=== PATIENT | female | born 1950 | race Caucasian/White ===

== ENCOUNTER → 2017-04-09 | Outpatient (CLI) | payer BC ==
--- NOTE | 2017-04-10 10:49 | MM ---
Reason for exam: screening (asymptomatic). Last mammogram was performed 1 year and 2 months ago. History: Patient is postmenopausal and had first child at age 41. Family history of breast cancer in maternal aunt. Benign stereotactic core biopsy of the right breast, April 17, 2004. Benign stereotactic core biopsy of the right breast, January 03, 2000. Physical Findings: A clinical breast exam by your physician is recommended on an annual basis and results should be correlated with mammographic findings. MG 3D Screening Mammo W/Cad Bilateral CC and MLO view(s) were taken. Prior study comparison: January 23, 2016, bilateral MG 3d screening mammo w/cad. December 15, 2014, bilateral MG screening mammo w CAD. There are scattered fibroglandular densities. Stable benign calcifications. There is no discrete abnormality. No significant changes when compared with prior studies. ASSESSMENT: Benign, BI-RAD 2 RECOMMENDATION: Routine screening mammogram of both breasts in 1 year.
== END | disposition home or self-care (01) ==
LOC: RADMAMWWP 13:43
PROVIDERS: ATTEND Family Medicine
DX: Z12.31 Encounter for screening mammogram for malignant neoplasm of breast (principal)
CPT/HCPCS: 77063; G0202

== ENCOUNTER → 2017-12-02 | Outpatient (CLI) | payer MEDICARE ==
[2017-12-02 14:59] LABS: Potassium 4.5 mmol/L (3.5-5.1)
== END | disposition home or self-care (01) ==
LOC: LABWHC1 14:20
PROVIDERS: ATTEND Internal Medicine Interventional Cardiology
DX: I10 Essential (primary) hypertension (principal)
CPT/HCPCS: 36415; 80051; 82565; 84520

== ENCOUNTER → 2018-10-07 | Outpatient (CLI) | payer MEDICARE ==
--- NOTE | 2018-10-08 10:18 | MM ---
Reason for exam: screening (asymptomatic). Last mammogram was performed 1 year and 6 months ago. History: Patient is postmenopausal and had first child at age 41. Family history of breast cancer in maternal aunt. Benign stereotactic core biopsy of the right breast, April 17, 2004. Benign stereotactic core biopsy of the right breast, January 03, 2000. Physical Findings: A clinical breast exam by your physician is recommended on an annual basis and results should be correlated with mammographic findings. MG 3D Screening Mammo W/Cad Bilateral CC and MLO view(s) were taken. Prior study comparison: April 09, 2017, bilateral MG 3d screening mammo w/cad. January 23, 2016, bilateral MG 3d screening mammo w/cad. The breast tissue is heterogeneously dense. This may lower the sensitivity of mammography. There are benign appearing round linear calcifications bilaterally. Previous mammotome biopsy in the right breast. There is no discrete abnormality. ASSESSMENT: Benign, BI-RAD 2 RECOMMENDATION: Routine screening mammogram of both breasts in 1 year.
== END | disposition home or self-care (01) ==
LOC: RADMAMWWP 10:51
PROVIDERS: ATTEND Obstetrics & Gynecology
DX: Z12.31 Encounter for screening mammogram for malignant neoplasm of breast (principal)
CPT/HCPCS: 77063; 77067

== ENCOUNTER → 2018-11-20 | Outpatient (CLI) | payer MEDICARE ==
--- NOTE | 2018-11-22 09:44 | US ---
LOWER EXTREMITY VENOUS INSUFFICIENCY SIDE PERFORMED: Bilateral 1) Color flow is present and patency is documented in the following vessels. No DVT or SVT is noted . EIV Common Femoral Vein Deep Femoral Vein Femoral Vein Popliteal Vein Proximal Calf Veins Greater Saph Vein Upper Small Saph Vein 2) There is venous reflux noted at the following venous levels: Right EIV, mild amount in CFV Left EIV, mild amount in CFV 3) Incompetent perforators are noted at these levels: Grayscale, color Doppler, spectral Doppler imaging performed IMPRESSION: Venous reflux bilaterally as described
== END | disposition home or self-care (01) ==
LOC: RADUSMAIN 14:07
PROVIDERS: ATTEND Nuclear Medicine Nuclear Cardiology
DX: I87.2 Venous insufficiency (chronic) (peripheral) (principal)
CPT/HCPCS: 93970

== ENCOUNTER → 2018-12-15 | Outpatient (CLI) | payer MEDICARE ==
--- NOTE | 2018-12-15 16:46 | US ---
EXAMINATION TYPE: US venous doppler duplex LE DATE OF EXAM: 12/15/2018 4:30 PM COMPARISON: NONE CLINICAL HISTORY: varicose veins of bilat lower extremities I83.813. SIDE PERFORMED: Bilateral TECHNIQUE: The lower extremity deep venous system is examined utilizing real time linear array sonog mike with graded compression, doppler sonography and color-flow sonography. VESSELS IMAGED: External Iliac Vein (EIV) Common Femoral Vein Deep Femoral Vein Greater Saphenous Vein * Femoral Vein Popliteal Vein Small Saphenous Vein * Proximal Calf Veins (* superficial vessels) Right Leg: Negative for DVT Left Leg: Negative for DVT IMPRESSION: No evidence of deep venous thrombosis in both legs.
== END | disposition home or self-care (01) ==
LOC: RADUSWWP 15:53
PROVIDERS: ATTEND Nuclear Medicine Nuclear Cardiology
DX: I83.813 Varicose veins of bilateral lower extremities with pain (principal)
CPT/HCPCS: 93970

== ENCOUNTER → 2020-02-10 | Outpatient (CLI) | payer MEDICARE ==
--- NOTE | 2020-02-11 11:25 | MM ---
Reason for exam: screening (asymptomatic). Last mammogram was performed 1 year and 4 months ago. History: Patient is postmenopausal and had first child at age 41. Family history of breast cancer in maternal aunt. Benign stereotactic core biopsy of the right breast, April 17, 2004. Benign stereotactic core biopsy of the right breast, January 03, 2000. Physical Findings: A clinical breast exam by your physician is recommended on an annual basis and results should be correlated with mammographic findings. MG 3D Screening Mammo W/Cad Bilateral CC and MLO view(s) were taken. Prior study comparison: October 07, 2018, bilateral MG 3d screening mammo w/cad. April 09, 2017, bilateral MG 3d screening mammo w/cad. There are scattered fibroglandular densities. No significant changes when compared with prior studies. ASSESSMENT: Benign, BI-RAD 2 RECOMMENDATION: Routine screening mammogram of both breasts in 1 year.
== END | disposition home or self-care (01) ==
LOC: RADMAMWWP 08:45
PROVIDERS: ATTEND Family Medicine
DX: Z12.31 Encounter for screening mammogram for malignant neoplasm of breast (principal)
CPT/HCPCS: 77063; 77067

== ENCOUNTER → 2021-05-17 | Outpatient (CLI) | payer MEDICARE ==
[2021-05-17 23:31] LABS: HCT 39.3 % (37.2-46.3); HGB 12.6 g/dL (12.0-15.0); MCH 32.6 pg (27.0-32.0); MCHC 32.1 g/dL (32.0-37.0); MCV 101.8 fL (80.0-97.0); Mean Platelet Volume 12.2 fL (9.5-12.2); Platelet Count 130 X 10*3/uL (140-440); RBC 3.86 X 10*6/uL (4.10-5.20); RDW 15.5 % (11.5-14.5); WBC 5.04 X 10*3/uL (4.50-10.00)
[2021-05-18 05:13] LABS: T4, Free (Free Thyroxine) 0.88 ng/dL (0.800-1.800)
== END | disposition home or self-care (01) ==
LOC: LABWHC1 15:13
PROVIDERS: ATTEND Physician Assistant
DX: G62.9 Polyneuropathy, unspecified (principal)
CPT/HCPCS: 36415; 82306; 82607; 84207; 84439; 84443; 84481; 85027; 86334

== ENCOUNTER → 2021-05-17 | Outpatient (CLI) | payer MEDICARE ==
--- NOTE | 2021-05-19 11:45 | MM ---
Reason for exam: screening (asymptomatic). Last mammogram was performed 1 year and 3 months ago. History: Patient is postmenopausal and had first child at age 41. Family history of breast cancer in maternal aunt. Benign stereotactic core biopsy of the right breast, April 17, 2004. Benign stereotactic core biopsy of the right breast, January 03, 2000. Physical Findings: A clinical breast exam by your physician is recommended on an annual basis and results should be correlated with mammographic findings. MG 3D Screening Mammo W/Cad Bilateral CC and MLO view(s) were taken. XCCL view(s) were taken of the right breast. Prior study comparison: February 10, 2020, bilateral MG 3d screening mammo w/cad. October 07, 2018, bilateral MG 3d screening mammo w/cad. April 09, 2017, bilateral MG 3d screening mammo w/cad. There are scattered fibroglandular densities. Previous mammotome biopsy in the right breast. There is chronic nodularity in the right breast. Stable mole right breast. No significant changes when compared with prior studies. ASSESSMENT: Benign, BI-RAD 2 RECOMMENDATION: Routine screening mammogram of both breasts in 1 year.
== END | disposition home or self-care (01) ==
LOC: RADMAMWWP 15:17
PROVIDERS: ATTEND Family Medicine
DX: Z12.31 Encounter for screening mammogram for malignant neoplasm of breast (principal)
CPT/HCPCS: 77063; 77067

== ENCOUNTER → 2022-06-04 | Outpatient (CLI) | payer MEDICARE ==
--- NOTE | 2022-06-05 08:32 | MM ---
Reason for Exam: Screening (asymptomatic). Last mammogram was performed 1 year(s) and 1 month(s) ago. Patient History: Menarche at age 14. First Full-Term at age 41. Late child-bearing (after 30). Postmenopausal. 04/17/2004, Benign Stereotactic Core Biopsy on the right side. 01/03/2000, Benign Stereotactic Core Biopsy on the right side. Maternal aunt had breast cancer, age 65. Risk Values: Deonna 5 year model risk: 3.6%. NCI Lifetime model risk: 10.7%. Prior Study Comparison: 10/07/2018 Bilateral Screening Mammogram, [facility]. 02/10/2020 Bilateral Screening Mammogram, [facility]. 05/17/2021 Bilateral Screening Mammogram, [facility]. Tissue Density: The breast tissue is almost entirely fat. Findings: Analyzed By CAD. There is no suspicious group of microcalcifications or new suspicious mass in either breast. Overall Assessment: Negative, BI-RAD 1 Management: Screening Mammogram of both breasts in 1 year. A clinical breast exam by your physician is recommended on an annual basis and results should be correlated with mammographic findings. [facility] will attempt to contact patient to return for supplemental views and ultrasound if indicated. Electronically signed and approved by: Inocencio Ruvalcaba DO
== END | disposition home or self-care (01) ==
LOC: RADMAMWWP 10:51
PROVIDERS: ATTEND Family Medicine
DX: Z12.31 Encounter for screening mammogram for malignant neoplasm of breast (principal); Z78.0 Asymptomatic menopausal state; Z80.3 Family history of malignant neoplasm of breast
CPT/HCPCS: 77063; 77067

== ENCOUNTER 2022-11-02 19:56 | Inpatient (IN) | payer MEDICARE ==
[2022-11-02 20:42] LABS: Anisocytosis Slight; Basophils % (A) 0 %; Eosinophils % (A) 1 %; HCT 40.4 % (34.0-46.0); HGB 13.4 gm/dL (11.4-16.0); Lymphocytes # (A) 0.2 k/uL (1.0-4.8); Lymphocytes % (A) 9 %; MCH 28.6 pg (25.0-35.0); MCHC 33.2 g/dL (31.0-37.0); MCV 86.1 fL (80.0-100.0); Mean Platelet Volume 8.7; Monocytes # (A) 0.1 k/uL (0-1.0); Monocytes % (A) 3 %; Neutrophils # (A) 2.2 k/uL (1.3-7.7); Neutrophils % (A) 87 %; Platelet Count 151 k/uL (150-450); Poikilocytosis Slight; RBC 4.69 m/uL (3.80-5.40); RDW 16.3 % (11.5-15.5); WBC 2.6 k/uL (3.8-10.6)
--- NOTE | 2022-11-02 20:48 | XR ---
EXAMINATION TYPE: XR chest 2V DATE OF EXAM: 11/02/2022 COMPARISON: 10/07/2014 TECHNIQUE: PA and lateral views submitted. HISTORY: Shortness of breath FINDINGS: The heart is enlarged. There is a diffuse interstitial pattern. No sizable pneumothorax or pleural ef fusion. Hypertrophic and degenerative change of the spine. Arthropathy of the shoulders. Lap band pre vious surgery suggested. IMPRESSION: 1. Diffuse interstitial pattern. Lack of pleural fluid suggest infectious etiology should be favored over CHF correlate clinically.
[2022-11-02 20:51] LABS: ALT 24 U/L (4-34); AST 45 U/L (14-36); African American GFR (CKD) >90 (>60 ml/min/1.73 sqM); Albumin 3.7 g/dL (3.5-5.0); Alkaline Phosphatase 160 U/L (38-126); Anion Gap 11 mmol/L; Blood Urea Nitrogen 14 mg/dL (7-17); Calcium 8.8 mg/dL (8.4-10.2); Carbon Dioxide 26 mmol/L (22-30); Chloride 101 mmol/L (98-107); Glucose 129 mg/dL (74-99); Non-African American GFR(CKD) 88 (>60 ml/min/1.73 sqM); Sodium 138 mmol/L (137-145); Total Bilirubin 0.8 mg/dL (0.2-1.3); Total Protein 6.6 g/dL (6.3-8.2)
[2022-11-02 20:52] LABS: Partial Thromboplastin Time 25.1 sec (22.0-30.0); Prothrombin Time 10.6 sec (9.0-12.0)
[2022-11-02] MEDS ORDERED: ALBUTEROL NEBULIZED 2.5 MG/3 ML INHALATION STA (20:52)
[2022-11-02] MEDS ORDERED: ALBUTEROL HFA INHALER INHALATION STA (20:54)
[2022-11-02 20:56] LABS: Potassium 2.7 mmol/L (3.5-5.1)
[2022-11-02] MEDS ORDERED: POTASSIUM CHLORIDE ER 20 MEQ TAB.ER PO STA (20:58)
--- NOTE | 2022-11-02 21:32 | ED ---
SOB HPI - General Chief Complaint: Shortness of Breath Stated Complaint: covid +/sob Time Seen by Provider: 11/02/22 20:05 Source: patient Mode of arrival: ambulatory Limitations: no limitations - History of Present Illness Initial Comments: Patient is a 71-year-old female who presents to the emergency department for shortness of breath. Patient states she had a positive at home COVID-19 testing earlier this week. She started to feel short of breath for the past couple days. Patient feels short of breath at rest. She denies chest pain. She does not have history of COPD or asthma. She does have history of atrial fibrillation currently on Xarelto. She denies a fever, chills, abdominal pain, nausea, vomiting. She does have a dry cough and nasal congestion. No lower extremity pain or swelling. - Related Data Home Medications Medication Instructions Recorded Confirmed Atorvastatin [Lipitor] 10 mg PO AC-SUPPER 10/13/14 12/23/14 Cholecalciferol [Vitamin D3] 400 unit PO PC-SUPPER 10/13/14 12/23/14 HYDROcodone/APAP 7.5-325MG [[place] 1 each PO TID PRN 10/13/14 12/23/14 7.5-325] Ibuprofen [Motrin] 800 mg PO DAILY PRN 10/13/14 12/23/14 Lisinopril-Hctz 10-12.5 mg 1 each PO DAILY 10/13/14 12/23/14 [Zestoretic 10-12.5] Metoprolol Tartrate 25 mg PO BID 10/13/14 12/23/14 Multivitamins, Thera [Theragran] 1 each PO AC-SUPPER 10/13/14 12/23/14 Rivaroxaban [Xarelto] 20 mg PO PC-SUPPER 10/13/14 12/23/14 Sertraline [Zoloft] 150 mg PO PC-SUPPER 10/13/14 12/23/14 Amiodarone [Cordarone] 200 mg PO BID 12/22/14 12/23/14 Allergies Allergy/AdvReac Type Severity Reaction Status Date / Time No Known Allergies Allergy Verified 11/02/22 20:02 Review of Systems ROS Statement: Those systems with pertinent positive or pertinent negative responses have been documented in the HPI. ROS Other: All systems not noted in ROS Statement are negative. Past Medical History Past Medical History: Atrial Fibrillation, Hyperlipidemia, Hypertension, Osteoarthritis (OA) Additional Past Medical History / Comment(s): LILIANA KNEES VERY PAINFUL. MILD EDEMA LEGS History of Any Multi-Drug Resistant Organisms: None Reported Past Surgical History: Bariatric Surgery, Breast Surgery, Section, Heart Catheterization Additional Past Surgical History / Comment(s): 2 BREAST BX; D&C'S; LAP BAND 2005. Past Anesthesia/Blood Transfusion Reactions: No Reported Reaction Past Psychological History: Anxiety Smoking Status: Never smoker Past Alcohol Use History: Occasional Past Drug Use History: None Reported - Past Family History Mother Family Medical History: Deep Vein Thrombosis (DVT) Father Family Medical History: CVA/TIA General Exam Limitations: no limitations General appearance: alert, in no apparent distress Respiratory exam: Present: normal lung sounds bilaterally, decreased breath sounds (bronchospasm ). Absent: respiratory distress, wheezes, rales, rhonchi, stridor Cardiovascular Exam: Present: regular rate, normal rhythm, normal heart sounds. Absent: systolic murmur, diastolic murmur, rubs, gallop, clicks GI/Abdominal exam: Present: soft, normal bowel sounds. Absent: distended, tenderness, guarding, rebound, rigid Neurological exam: Present: alert, oriented X3, CN II-XII intact Psychiatric exam: Present: normal affect, normal mood Skin exam: Present: warm, dry, intact, normal color. Absent: rash Course Vital Signs 11/02/22 11/02/22 19:57 20:41 Temperature 98.2 F Pulse Rate 102 H Respiratory 22 20 Rate Blood Pressure 178/92 O2 Sat by Pulse 93 L Oximetry Medical Decision Making - Medical Decision Making EKG taken at 20:16, interpreted by me Atrial fibrillation with RVR Ventricular rate 107, QRS duration 86, QTC 418 Was pt. sent in by a medical professional or institution (, PA, CHIEF OF PRODUCTION, urgent care, hospital, or chcf...) When possible be specific @ -[No] Did you speak to anyone other than the patient for history (EMS, parent, family, police, friend...)? What history was obtained from this source @ -[No] Did you review nursing and triage notes (agree or disagree)? Why? @ -[I reviewed and agree with nursing and triage notes] Were old charts reviewed (outside hosp., previous admission, EMS record, old EKG, old radiological studies, urgent care reports/EKG's, chcf records)? Report findings @ -[No old charts were reviewed] Differential Diagnosis (chest pain, altered mental status, abdominal pain women, abdominal pain men, vaginal bleeding, weakness, fever, dyspnea, syncope, h eadache, dizziness, GI bleed, back pain, seizure, CVA, palpatations, mental health)? @ -Differential Dyspnea: Coronary syndrome, arrhythmia, tamponade, asthma, COPD, pulmonary embolism, pneumonia, pneumothorax, pulmonary effusion, anaphylaxis, diabetic ketoacidosis, flailed chest, pulmonary contusion, diaphragmatic rupture, anemia, neuromuscular, this is not meant to be an all-inclusive list. EKG interpreted by me (3pts min.). @ -[As above] X-rays interpreted by me (1pt min.). @ -Yes, chest x-ray shows a diffuse interstitial pattern CT interpreted by me (1pt min.). @ -[None done] U/S interpreted by me (1pt. min.). @ -[None done] What testing was considered but not performed or refused? (CT, X-rays, U/S, labs)? Why? @ -[None] What meds were considered but not given or refused? Why? @ -[None] Did you discuss the management of the patient with other professionals (professionals i.e. , PA, CHIEF OF PRODUCTION, lab, RT, psych nurse, sexual assault social worker, studio engineer, teacher, systems support officer, shelter case manager)? Give summary @ -[No] Was smoking cessation discussed for >3mins.? @ -[No] Was critical care preformed (if so, how long)? @ -[No] Were there social determinants of health that impacted care today? How? (Homelessness, low income, unemployed, alcoholism, drug addiction, transportation, low edu. Level, literacy, decrease access to med. care, chcf, rehab)? @ -[No] Was there de-escalation of care discussed even if they declined (Discuss DNR or withdrawal of care, Hospice)? DNR status @ -[No] What co-morbidities impacted this encounter? (DM, HTN, Smoking, COPD, CAD, Cancer, CVA, ARF, Chemo, Hep., AIDS, mental health diagnosis, sleep apnea, morbid obesity)? @ -[None] Was patient admitted / discharged? Hospital course, mention meds given and route, prescriptions, significant lab abnormalities, going to OR and other pertinent info. @ -Patient presenting with shortness of breath after recent COVID-19 diagnosis. Patient appears mildly tachypneic she is hypoxic at 90% room air. Afebrile. Lung sounds are decreased with bronchospasm.EKG shows atrial fibrillation with ventricular rate at 107. Patient does not have chest pain. Laboratory studies obtained. COVID-19 is detected. Potassium is low at 2.7. Troponin and BNP are within normal limits. Chest x-ray obtained showing diffuse interstitial pattern. Patient observed closely in the emergency department. She remained stable on 2 L nasal cannula supplemental oxygen. Pulse remained in the 100s- 110s. Patient will be admitted for observation due to COVID-19 with hypoxemia. Case discussed with Stoney Fung who accepts admission. Pulm on consult. Patient admitted in stable condition Undiagnosed new problem with uncertain prognosis? @ -[No] Drug Therapy requiring intensive monitoring for toxicity (Heparin, Nitro, Insulin, Cardizem)? @ -[No] Were any procedures done? @ -[No] Diagnosis/symptom? @ -covid 19, hypoxemia Acute, or Chronic, or Acute on Chronic? @ -acute Uncomplicated (without systemic symptoms) or Complicated (systemic symptoms)? @ -uncomplicated Side effects of treatment? @ -[No] Exacerbation, Progression, or Severe Exacerbation? @ -[No] Poses a threat to life or bodily function? How? (Chest pain, USA, ME, pneumonia, PE, COPD, DKA, ARF, appy, cholecystitis, CVA, Diverticulitis, Homicidal, Suicidal, threat to staff... and all critical care pts) @ Dr. Hays is my attending. - Lab Data Result diagrams: 11/02/22 20:05 11/02/22 20:05 Lab Results 11/02/22 11/02/22 11/02/22 Range/Units 20:05 20:05 20:05 WBC 2.6 L (3.8-10.6) k/uL RBC 4.69 (3.80-5.40) m/uL Hgb 13.4 (11.4-16.0) gm/dL Hct 40.4 (34.0-46.0) % MCV 86.1 (80.0-100.0) fL MCH 28.6 (25.0-35.0) pg MCHC 33.2 (31.0-37.0) g/dL RDW 16.3 H (11.5-15.5) % Plt Count 151 (150-450) k/uL MPV 8.7 Neutrophils % 87 % Lymphocytes % 9 % Monocytes % 3 % Eosinophils % 1 % Basophils % 0 % Neutrophils # 2.2 (1.3-7.7) k/uL Lymphocytes # 0.2 L (1.0-4.8) k/uL Monocytes # 0.1 (0-1.0) k/uL Eosinophils # 0.0 (0-0.7) k/uL Basophils # 0.0 (0-0.2) k/uL Poikilocytosis Slight Anisocytosis Slight PT 10.6 (9.0-12.0) sec INR 1.0 (<1.2) APTT 25.1 (22.0-30.0) sec Sodium 138 (137-145) mmol/L Potassium 2.7 L* (3.5-5.1) mmol/L Chloride 101 (98-107) mmol/L Carbon Dioxide 26 (22-30) mmol/L Anion Gap 11 mmol/L BUN 14 (7-17) mg/dL Creatinine 0.71 (0.52-1.04) mg/dL Est GFR (CKD-EPI)AfAm >90 (>60 ml/min/1.73 sqM) Est GFR (CKD-EPI)NonAf 88 (>60 ml/min/1.73 sqM) Glucose 129 H (74-99) mg/dL Plasma Lactic Acid Son (0.7-2.0) mmol/L Calcium 8.8 (8.4-10.2) mg/dL Total Bilirubin 0.8 (0.2-1.3) mg/dL AST 45 H (14-36) U/L ALT 24 (4-34) U/L Alkaline Phosphatase 160 H (38-126) U/L Troponin I (0.000-0.034) ng/mL NT-Pro-B Natriuret Pep pg/mL Total Protein 6.6 (6.3-8.2) g/dL Albumin 3.7 (3.5-5.0) g/dL Influenza Type A (PCR) (Not Detectd) Influenza Type B (PCR) (Not Detectd) RSV (PCR) (Not Detectd) SARS-CoV-2 (PCR) (Not Detectd) 11/02/22 11/02/22 11/02/22 Range/Units 20:05 20:05 20:07 WBC (3.8-10.6) k/uL RBC (3.80-5.40) m/uL Hgb (11.4-16.0) gm/dL Hct (34.0-46.0) % MCV (80.0-100.0) fL MCH (25.0-35.0) pg MCHC (31.0-37.0) g/dL RDW (11.5-15.5) % Plt Count (150-450) k/uL MPV Neutrophils % % Lymphocytes % % Monocytes % % Eosinophils % % Basophils % % Neutrophils # (1.3-7.7) k/uL Lymphocytes # (1.0-4.8) k/uL Monocytes # (0-1.0) k/uL Eosinophils # (0-0.7) k/uL Basophils # (0-0.2) k/uL Poikilocytosis Anisocytosis PT (9.0-12.0) sec INR (<1.2) APTT (22.0-30.0) sec Sodium (137-145) mmol/L Potassium (3.5-5.1) mmol/L Chloride (98-107) mmol/L Carbon Dioxide (22-30) mmol/L Anion Gap mmol/L BUN (7-17) mg/dL Creatinine (0.52-1.04) mg/dL Est GFR (CKD-EPI)AfAm (>60 ml/min/1.73 sqM) Est GFR (CKD-EPI)NonAf (>60 ml/min/1.73 sqM) Glucose (74-99) mg/dL Plasma Lactic Acid Son 1.5 (0.7-2.0) mmol/L Calcium (8.4-10.2) mg/dL Total Bilirubin (0.2-1.3) mg/dL AST (14-36) U/L ALT (4-34) U/L Alkaline Phosphatase (38-126) U/L Troponin I 0.019 (0.000-0.034) ng/mL NT-Pro-B Natriuret Pep pg/mL Total Protein (6.3-8.2) g/dL Albumin (3.5-5.0) g/dL Influenza Type A (PCR) Not Detected (Not Detectd) Influenza Type B (PCR) Not Detected (Not Detectd) RSV (PCR) Not Detected (Not Detectd) SARS-CoV-2 (PCR) Detected A (Not Detectd) 11/02/22 Range/Units 20:51 WBC (3.8-10.6) k/uL RBC (3.80-5.40) m/uL Hgb (11.4-16.0) gm/dL Hct (34.0-46.0) % MCV (80.0-100.0) fL MCH (25.0-35.0) pg MCHC (31.0-37.0) g/dL RDW (11.5-15.5) % Plt Count (150-450) k/uL MPV Neutrophils % % Lymphocytes % % Monocytes % % Eosinophils % % Basophils % % Neutrophils # (1.3-7.7) k/uL Lymphocytes # (1.0-4.8) k/uL Monocytes # (0-1.0) k/uL Eosinophils # (0-0.7) k/uL Basophils # (0-0.2) k/uL Poikilocytosis Anisocytosis PT (9.0-12.0) sec INR (<1.2) APTT (22.0-30.0) sec Sodium (137-145) mmol/L Potassium (3.5-5.1) mmol/L Chloride (98-107) mmol/L Carbon Dioxide (22-30) mmol/L Anion Gap mmol/L BUN (7-17) mg/dL Creatinine (0.52-1.04) mg/dL Est GFR (CKD-EPI)AfAm (>60 ml/min/1.73 sqM) Est GFR (CKD-EPI)NonAf (>60 ml/min/1.73 sqM) Glucose (74-99) mg/dL Plasma Lactic Acid Son (0.7-2.0) mmol/L Calcium (8.4-10.2) mg/dL Total Bilirubin (0.2-1.3) mg/dL AST (14-36) U/L ALT (4-34) U/L Alkaline Phosphatase (38-126) U/L Troponin I (0.000-0.034) ng/mL NT-Pro-B Natriuret Pep 521 pg/mL Total Protein (6.3-8.2) g/dL Albumin (3.5-5.0) g/dL Influenza Type A (PCR) (Not Detectd) Influenza Type B (PCR) (Not Detectd) RSV (PCR) (Not Detectd) SARS-CoV-2 (PCR) (Not Detectd) Disposition Clinical Impression: COVID-19, Hypoxemia Disposition: ADMITTED IP TO THIS HOSP Condition: Stable Referrals: Gaurav Hutchinson MD [Primary Care Provider] - 1-2 days
[2022-11-02] MEDS ORDERED: ONDANSETRON 4 MG/2 ML VIAL IVP STA (21:47)
[2022-11-02] MEDS ORDERED: ONDANSETRON 4 MG/2 ML VIAL IVP PRN (21:48)
[2022-11-02] MEDS ORDERED: NALOXONE 0.4 MG/ML 1 ML VIAL IV PRN (21:48)
[2022-11-03] MEDS ORDERED: ACETAMINOPHEN TAB 325 MG TAB PO PRN (00:34)
[2022-11-03] MEDS ORDERED: FUROSEMIDE 20 MG TAB PO PRN (09:19)
[2022-11-03] MEDS ORDERED: POTASSIUM CHLORIDE ER 10 MEQ TAB.ER.PRT PO PRN (09:19)
[2022-11-03] MEDS: CHOLECALCIFEROL 25 MCG (1000 IU) TABLET PO SCH (09:32)
[2022-11-03] MEDS: ASCORBIC ACID 500 MG TAB PO SCH (09:32)
[2022-11-03] MEDS: METOPROLOL TARTRATE 50 MG TAB PO SCH ×2 (09:32→20:05)
[2022-11-03] MEDS: ZINC SULFATE 220 MG CAP PO SCH (09:32)
[2022-11-03] MEDS: lisinopriL 5 MG TAB PO SCH ×2 (09:33→20:05)
[2022-11-03] MEDS: dexAMETHasone 2 MG TAB PO SCH (09:33)
[2022-11-03] MEDS ORDERED: Potassium Replacement Protocol 1 EACH MISC MISCELLANE PRN (10:47)
[2022-11-03] MEDS ORDERED: Magnesium Replacement Protocol 1 EACH MISC MISCELLANE PRN (10:47)
[2022-11-03] MEDS ORDERED: REMDESIVIR 200 MG in SODIUM CHLORIDE 0.9% 250 ML IVPB ONE (11:00)
--- NOTE | 2022-11-03 12:17 | HP ---
HISTORY AND PHYSICAL CHIEF COMPLAINT: Shortness of breath, cough, and cold. HISTORY OF PRESENT ILLNESS: This is a 71-year-old woman with a past medical history of multiple medical problems including atrial fibrillation, was not feeling well for the past several days. Patient had increased shortness with cough, and the patient came to [facility]. Chest x-ray showed bilateral pneumonia. COVID-19 was positive. Patient also had severe hypokalemia. No chest pain or palpitations. No fever. PAST MEDICAL HISTORY: Reviewed include atrial fibrillation, rest of the history and rest of the chart is also reviewed. CURRENT MEDICATIONS: Zestril, the dose and rest of medications noted. ALLERGIES: None. FAMILY HISTORY: History of DVT in the family. SOCIAL HISTORY: No history of smoking. REVIEW OF SYSTEMS: A 14-point review is negative except as mentioned earlier. PHYSICAL EXAMINATION: VITAL SIGNS: Pulse 116, blood pressure ntd, respirations 16. HEENT: Conjunctivae normal. NECK: No jugular venous distention. CARDIOVASCULAR: S1, S2. RESPIRATIONS: Few scattered rhonchi. ABDOMEN: Soft. NERVOUS SYSTEM: No focal deficits. SKIN: No ulcer, rash, bleeding. JOINTS: No active deforming arthropathy. LABORATORY DATA: Reviewed. ASSESSMENT: 1. Acute COVID-19 infection with acute COVID-19 bilateral pneumonia. 2. Hypokalemia. 3. Atrial fibrillation. 4. Hyperlipidemia. 5. Multiple medical issues. RECOMMENDATIONS AND DISCUSSION: This is a 71-year-old woman presented with multiple complex medical issues, we will monitor the patient closely. We will initiate remdesivir, infectious disease and pulmonary consultations, dexamethasone. The patient is on rivaroxaban, will continue to monitor. Prognosis guarded. Repeat lytes and further recommendations to follow. MMODL / IJN: [id number] / [id number]
--- NOTE | 2022-11-03 12:17 | P.CNPUL ---
History of Present Illness Consult date: 11/03/22 Requesting physician: Isaac Reynolds Reason for consult: dyspnea, other (COVID-19) Chief complaint: Shortness of breath, cough, congestion, muscle aches and diarrhea History of present illness: This is a pleasant 71-year-old female patient with a known history of atrial fibrillation anticoagulated with Xarelto, hypertension, hyperlipidemia and anxiety. Lifelong nonsmoker. One week ago she developed increasing shortness of breath body aches diarrhea cough and congestion. She did have a positive home CoVID test. Her symptoms continued to worsen and she came to the emergency room yesterday. Chest x-ray did reveal diffuse interstitial pattern. No sizable pneumothorax or pleural effusions. White count 2.6. Hemoglobin 13.4. Sodium 138. Potassium 2.7. Bicarb 26. BUN 14. Creatinine 0.71. Close 129. AST 45. ALT 24. Influenza screen negative. RSV screen negative. COVID-19 testing positive. She is seen today in consultation on the regular medical floor. Currently sitting up in a chair at the bedside. Awake and alert in no acute distress. She is maintaining O2 saturations at 91% on room air. 97% on 2 L nasal cannula. Afebrile. Somewhat tachycardic. In atrial fibrillation. Afebrile. Review of Systems REVIEW OF SYSTEMS: CONSTITUTIONAL: Positive for generalized weakness. Denies any recent significant weight loss or weight gain. EYES: Denies change in vision. EARS, NOSE, MOUTH, THROAT: Denies headaches, denies sore throat. CARDIOVASCULAR: Denies chest pain, palpitations or syncopal episodes. RESPIRATORY: Positive for shortness of breath, cough, congestion no hemoptysis. GASTROINTESTINAL: Positive for diarrhea. GENITOURINARY: Denies hematuria, denies infections. MUSKULOSKELETAL: Denies pain, denies swelling. INTEGUMENTARY: Denies rash, denies eczema. NEUROLOGICAL: Denies recent memory loss, no recent seizure activity. PSYCHIATRIC: Denies anxiety, denies depression. HEMATOLOGIC/LYMPHATIC: Denies anemia, denies enlarged lymph nodes. Past Medical History Past Medical History: Atrial Fibrillation, Hyperlipidemia, Hypertension, Osteoarthritis (OA) Additional Past Medical History / Comment(s): LILIANA KNEES VERY PAINFUL. MILD EDEMA LEGS History of Any Multi-Drug Resistant Organisms: None Reported Past Surgical History: Bariatric Surgery, Breast Surgery, Section, Heart Catheterization Additional Past Surgical History / Comment(s): 2 BREAST BX; D&C'S; LAP BAND 2005. Past Anesthesia/Blood Transfusion Reactions: No Reported Reaction Past Psychological History: Anxiety Smoking Status: Never smoker Past Alcohol Use History: Occasional Additional Past Alcohol Use History / Comment(s): 2 GLASSES WINE 2-3X PER WK Past Drug Use History: None Reported - Past Family History Mother Family Medical History: Deep Vein Thrombosis (DVT) Father Family Medical History: CVA/TIA Medications and Allergies Home Medications Medication Instructions Recorded Confirmed Type Atorvastatin [Lipitor] 10 mg PO HS 10/13/14 11/02/22 History Rivaroxaban [Xarelto] 20 mg PO HS 10/13/14 11/02/22 History Sertraline [Zoloft] 150 mg PO HS 10/13/14 11/02/22 History Furosemide [Lasix] 20 mg PO DAILY PRN 11/02/22 11/02/22 History Metoprolol Tartrate [Lopressor] 100 mg PO BID 11/02/22 11/02/22 History Nitrofurantoin Macrocrystal 50 mg PO HS 11/02/22 11/02/22 History [Macrodantin] Potassium Chloride ER [K-Dur 10] 10 meq PO DAILY PRN 11/02/22 11/02/22 History lisinopriL [Zestril] 5 mg PO BID 11/02/22 11/02/22 History Allergies Allergy/AdvReac Type Severity Reaction Status Date / Time No Known Allergies Allergy Verified 11/02/22 22:06 Physical Exam Vitals: Vital Signs Temp Pulse Pulse Resp BP BP BP 11/03/22 08:00 116 H 16 11/03/22 07:59 11/03/22 07:50 98.0 F 116 H 16 109/72 11/03/22 02:00 121 H 18 11/03/22 00:15 99.6 F 121 H 18 153/86 11/02/22 23:50 100 20 155/84 11/02/22 22:17 94 18 160/85 11/02/22 20:41 20 11/02/22 19:57 98.2 F 102 H 22 178/92 Pulse Ox 11/03/22 08:00 11/03/22 07:59 97 11/03/22 07:50 91 L 11/03/22 02:00 04/08/23 00:15 97 11/02/22 23:50 94 L 11/02/22 22:17 96 11/02/22 20:41 11/02/22 19:57 93 L Intake and Output 11/02/22 11/03/22 11/03/22 22:59 06:59 14:59 Other: Voiding Method Toilet Toilet # Voids 1 1 # Bowel Movements 1 Weight 104.326 kg 104.326 kg GENERAL EXAM: Alert, pleasant 71-year-old female, up in a chair at the bedside, on 2 L nasal cannula comfortable in no apparent distress. HEAD: Normocephalic. EYES: Normal reaction of pupils, equal size. NOSE: Clear with pink turbinates. THROAT: No erythema or exudates. NECK: No masses, no JVD. CHEST: No chest wall deformity. LUNGS: Equal air entry with bilateral scattered rhonchi, crackles in the bases. CVS: S1 and S2 normal with no audible murmur, regular rhythm. ABDOMEN: No hepatosplenomegaly, normal bowel sounds, no guarding or rigidity. SPINE: No scoliosis or deformity SKIN: No rashes CENTRAL NERVOUS SYSTEM: No focal deficits, tone is normal in all 4 extremities. EXTREMITIES: There is no peripheral edema. No clubbing, no cyanosis. Peripheral pulses are intact. Results - Laboratory Findings CBC and BMP: 11/02/22 20:05 11/02/22 20:05 PT/INR, D-dimer PT 10.6 sec (9.0-12.0) 11/02/22 20:05 INR 1.0 (<1.2) 11/02/22 20:05 Abnormal lab findings: Abnormal Labs 11/02/22 11/02/22 11/02/22 20:05 20:05 20:07 WBC 2.6 L RDW 16.3 H Lymphocytes # 0.2 L Potassium 2.7 L* Glucose 129 H AST 45 H Alkaline Phosphatase 160 H SARS-CoV-2 (PCR) Detected A - Diagnostic Findings Chest x-ray: image reviewed Assessment and Plan Assessment: Acute COVID-19 infection with diarrhea and muscle aches with suspected COVID-19 pneumonia Acute hypoxemic respiratory failure secondary to above Hypokalemia secondary to diarrhea Atrial fibrillation with rapid ventricular response, anticoagulated with Xarelto History of hypertension Hyperlipidemia Anxiety Plan: The patient was seen and evaluated Chest x-ray, labs and medications reviewed Check a pro-calcitonin Initiate Remdesivir Initiate vitamin supplements Initiate Decadron Titrate the FiO2 as tolerated We will continue to follow and make further recommendations based on her clinical status I have personally seen and examined the patient, performed the documentation and the assessment and plan as written. Number of minutes spent on the visit: 20.
[2022-11-03] MEDS: ATORVASTATIN 10 MG TAB PO SCH (20:05)
[2022-11-03] MEDS: NITROFURANTOIN MACROCRYSTAL 50 MG PO SCH (20:06)
[2022-11-03] MEDS: RIVAROXABAN 20 MG TAB PO SCH (20:06)
[2022-11-03] MEDS: SERTRALINE 50 MG TAB PO SCH (20:06)
--- NOTE | 2022-11-03 21:22 | P.CONS ---
History of Present Illness - Reason for Consult Consult date: 11/03/22 covid 19 Requesting physician: Isaac Reynolds - Chief Complaint Weakness and increasing shortness of breath x one week - History of Present Illness Patient is a 71-year-old female with a past medical history significant for hypertension hyperlipidemia atrial fibrillation on Xarelto presenting to the hospital with increasing shortness of breath body aches symptom has been going on for about a week before presentation to the hospital patient did have a positive home COVID test and noticed to have increasing symptoms of shortness of breath and cough cough has been moderate intensity did have some bloody sputum initially however is mostly dry now patient complaining of nausea but no vomiting and did have diarrhea with the symptom the patient was evaluated on presentation to the hospital patient was afebrile patient was hypoxic with O2 sats of 93% currently 92% on 2 L nasal cannula patient did have leukopenia and lymphopenia D-dimer was normal kidney function was normal AST was mildly elevated COVID test came back positive patient did have a chest x-ray d iffuse interstitial pattern like of pleural fluid suggest infectious etiology patient has been into the hospital patient was started on dexamethasone and remdesivir infectious disease was consulted for further management Review of Systems Positive point has been mentioned in the HPI rest of the systems are negative Past Medical History Past Medical History: Atrial Fibrillation, Hyperlipidemia, Hypertension, Osteoarthritis (OA) Additional Past Medical History / Comment(s): LILIANA KNEES VERY PAINFUL. MILD EDEMA LEGS History of Any Multi-Drug Resistant Organisms: None Reported Past Surgical History: Bariatric Surgery, Breast Surgery, Section, Heart Catheterization Additional Past Surgical History / Comment(s): 2 BREAST BX; D&C'S; LAP BAND 2005. Past Anesthesia/Blood Transfusion Reactions: No Reported Reaction Past Psychological History: Anxiety Smoking Status: Never smoker Past Alcohol Use History: Occasional Additional Past Alcohol Use History / Comment(s): 2 GLASSES WINE 2-3X PER WK Past Drug Use History: None Reported - Past Family History Mother Family Medical History: Deep Vein Thrombosis (DVT) Father Family Medical History: CVA/TIA Medications and Allergies Home Medications Medication Instructions Recorded Confirmed Type Atorvastatin [Lipitor] 10 mg PO HS 10/13/14 11/02/22 History Rivaroxaban [Xarelto] 20 mg PO HS 10/13/14 11/02/22 History Sertraline [Zoloft] 150 mg PO HS 10/13/14 11/02/22 History Furosemide [Lasix] 20 mg PO DAILY PRN 11/02/22 11/02/22 History Metoprolol Tartrate [Lopressor] 100 mg PO BID 11/02/22 11/02/22 History Nitrofurantoin Macrocrystal 50 mg PO HS 11/02/22 11/02/22 History [Macrodantin] Potassium Chloride ER [K-Dur 10] 10 meq PO DAILY PRN 11/02/22 11/02/22 History lisinopriL [Zestril] 5 mg PO BID 11/02/22 11/02/22 History Acetaminophen Tab [Tylenol] 650 mg PO Q6HR PRN tab 11/07/22 Rx Ascorbic Acid [Vitamin C] 500 mg PO DAILY 30 Days #30 tab 11/07/22 Rx Cholecalciferol [Vitamin D3 (25 25 mcg PO DAILY #30 tab 11/07/22 Rx Mcg = 1000 Iu)] Zinc Sulfate [Orazinc] 220 mg PO DAILY 14 Days #14 cap 11/07/22 Rx dexAMETHasone [Decadron] 6 mg PO DAILY 5 Days #5 tablet 11/07/22 Rx Allergies Allergy/AdvReac Type Severity Reaction Status Date / Time No Known Allergies Allergy Verified 11/02/22 22:06 Physical Exam Vitals: Vital Signs Temp Pulse Pulse Resp BP BP BP 11/03/22 08:00 116 H 16 11/03/22 07:59 11/03/22 07:50 98.0 F 116 H 16 109/72 11/03/22 02:00 121 H 18 11/03/22 00:15 99.6 F 121 H 18 153/86 11/02/22 23:50 100 20 155/84 11/02/22 22:17 94 18 160/85 11/02/22 20:41 20 11/02/22 19:57 98.2 F 102 H 22 178/92 Pulse Ox 11/03/22 08:00 11/03/22 07:59 97 11/03/22 07:50 91 L 11/03/22 02:00 11/03/22 00:15 97 11/02/22 23:50 94 L 11/02/22 22:17 96 11/02/22 20:41 11/02/22 19:57 93 L Intake and Output 11/02/22 11/03/2211/03/23 22:59 06:59 14:59 Other: Voiding Method Toilet Toilet # Voids 1 1 # Bowel Movements 1 Weight 104.326 kg 104.326 kg GENERAL DESCRIPTION: An elderly female up in the chair, no distress. No tachypnea or accessory muscle of respiration use. HEENT: Shows Pallor , no scleral icterus. Oral mucous membrane is dry. No pharyngeal erythema or thrush NECK: Trachea central, no thyromegaly. LUNGS: Unlabored breathing. Coarse crackles bilaterally. No wheeze HEART: S1, S2, regular rate and rhythm. No loud murmur ABDOMEN: Soft, no tenderness , guarding or rigidity, no organomegaly EXTREMITIES: No edema of feet. SKIN: No rash, no masses palpable. NEUROLOGICAL: The patient is awake, alert, oriented x3, mood and affect normal. Results CBC & Chem 7: 11/05/22 06:41 11/07/22 09:07 Labs: Abnormal Lab Results - Last 24 Hours (Table) 11/02/22 11/02/22 11/02/22 Range/Units 20:05 20:05 20:07 WBC 2.6 L (3.8-10.6) k/uL RDW 16.3 H (11.5-15.5) % Lymphocytes # 0.2 L (1.0-4.8) k/uL Potassium 2.7 L* (3.5-5.1) mmol/L Glucose 129 H (74-99) mg/dL AST 45 H (14-36) U/L Alkaline Phosphatase 160 H (38-126) U/L SARS-CoV-2 (PCR) Detected A (Not Detectd) Assessment and Plan (1) COVID-19 Status: Acute Code(s): U07.1 - COVID-19 SNOMED Code(s): 250224764 Plan: 1patient was in the hospital with increasing shortness of breath and cough in this patient with positive COVID test that has been going on for about a week evidence of hypoxemia and interstitial pneumonia on the chest x-ray secondary to COVID-19 infection clinically doubt secondary bacterial infection 2-we will check inflammatory markers 3-patient to continue with the dexamethasone remdesivir zinc and ascorbic acid 4-droplet isolation and respiratory support We will follow on clinical condition and cultures to further adjust medication if needed Thank you for this consultation we will follow the patient along with you Time with Patient: Greater than 30
[2022-11-04 08:02] LABS: Anisocytosis Slight; Basophils % (A) 0 %; Eosinophils % (A) 1 %; HGB 11.9 gm/dL (11.4-16.0); Lymphocytes # (A) 0.3 k/uL (1.0-4.8); Lymphocytes % (A) 10 %; MCH 27.9 pg (25.0-35.0); MCHC 32.3 g/dL (31.0-37.0); MCV 86.5 fL (80.0-100.0); Mean Platelet Volume 8.4; Monocytes # (A) 0.1 k/uL (0-1.0); Monocytes % (A) 5 %; Neutrophils # (A) 2.4 k/uL (1.3-7.7); Neutrophils % (A) 83 %; Platelet Count 180 k/uL (150-450); Poikilocytosis Slight; RBC 4.28 m/uL (3.80-5.40); RDW 16.4 % (11.5-15.5); WBC 2.9 k/uL (3.8-10.6)
[2022-11-04 08:20] LABS: African American GFR (CKD) 89 (>60 ml/min/1.73 sqM); Anion Gap 9 mmol/L; Blood Urea Nitrogen 22 mg/dL (7-17); Calcium 8.7 mg/dL (8.4-10.2); Carbon Dioxide 28 mmol/L (22-30); Chloride 102 mmol/L (98-107); Glucose 102 mg/dL (74-99); Magnesium 1.9 mg/dL (1.6-2.3); Non-African American GFR(CKD) 77 (>60 ml/min/1.73 sqM); Potassium 3.2 mmol/L (3.5-5.1); Sodium 139 mmol/L (137-145)
[2022-11-04] MEDS: ASCORBIC ACID 500 MG TAB PO SCH ×2 (09:11→09:12)
[2022-11-04] MEDS: dexAMETHasone 2 MG TAB PO SCH (09:11)
[2022-11-04] MEDS: METOPROLOL TARTRATE 50 MG TAB PO SCH ×2 (09:11→19:56)
[2022-11-04] MEDS: CHOLECALCIFEROL 25 MCG (1000 IU) TABLET PO SCH (09:12)
[2022-11-04] MEDS: lisinopriL 5 MG TAB PO SCH ×2 (09:12→19:53)
[2022-11-04] MEDS: ZINC SULFATE 220 MG CAP PO SCH (09:13)
--- NOTE | 2022-11-04 10:40 | P.PN ---
Subjective Progress Note Date: 11/04/22 This is a pleasant 71-year-old female patient with a known history of atrial fibrillation anticoagulated with Xarelto, hypertension, hyperlipidemia and anxiety. Lifelong nonsmoker. One week ago she developed increasing shortness of breath body aches diarrhea cough and congestion. She did have a positive home CoVID test. Her symptoms continued to worsen and she came to the emergency room yesterday. Chest x-ray did reveal diffuse interstitial pattern. No sizable pneumothorax or pleural effusions. White count 2.6. Hemoglobin 13.4. Sodium 138. Potassium 2.7. Bicarb 26. BUN 14. Creatinine 0.71. Close 129. AST 45. ALT 24. Influenza screen negative. RSV screen negative. COVID-19 testing positive. She is seen today in consultation on the regular medical floor. Currently sitting up in a chair at the bedside. Awake and alert in no acute distress. She is maintaining O2 saturations at 91% on room air. 97% on 2 L nasal cannula. Afebrile. Somewhat tachycardic. In atrial fibrillation. Afebrile. The patient is seen today 11/04/2022 in follow-up on the regular medical floor. She is sitting up in a chair at the bedside. Awake and alert in no acute distress.. Feeling a bit better today compared to yesterday. Maintaining O2 saturations in the 90s on 3 L/m per nasal cannula. She's afebrile. Less tachycardic. Remdesivir day #2. Continues on Decadron, vitamin supplements. Anticoagulated with Xarelto. White count 2.9. Hemoglobin 11.9. Platelets 180. Sodium 139. Potassium 3.2. Bicarb 28. BUN 22. Creatinine 0.79. Glucose 102. Procalcitonin 0.29. Will have follow-up chest x-ray in a.m. Objective - Vital Signs Vital signs: Vital Signs Temp 97.7 F 11/04/22 07:45 Pulse 82 11/04/22 07:45 Resp 16 11/04/22 07:45 BP 144/85 11/04/22 07:45 Pulse Ox 93 L 11/04/22 07:45 FiO2 Intake & Output 11/03/22 11/04/22 11/04/22 18:59 06:59 18:59 Intake Total 480 Balance 480 Intake: Oral 480 Other: Voiding Method Toilet Toilet # Voids 3 2 # Bowel Movements 1 - Exam GENERAL EXAM: Alert, active, up in a chair, pleasant 71 year old female, on 3 L nasal cannula, comfortable in no apparent distress. HEAD: Normocephalic. EYES: Normal reaction of pupils, equal size. NOSE: Clear with pink turbinates. THROAT: No erythema or exudates. NECK: No masses, no JVD. CHEST: No chest wall deformity. LUNGS: Equal air entry with crackles in the posterior bases per CVS: S1 and S2 normal with no audible murmur, regular rhythm. ABDOMEN: No hepatosplenomegaly, normal bowel sounds, no guarding or rigidity. SPINE: No scoliosis or deformity SKIN: No rashes CENTRAL NERVOUS SYSTEM: No focal deficits, tone is normal in all 4 extremities. EXTREMITIES: There is no peripheral edema. No clubbing, no cyanosis. P eripheral pulses are intact. - Labs CBC & Chem 7: 11/04/22 07:46 11/04/22 07:46 Labs: Abnormal Lab Results - Last 24 Hours (Table) 11/03/22 11/04/22 11/04/22 Range/Units 11:40 07:46 07:46 WBC 2.9 L (3.8-10.6) k/uL RDW 16.4 H (11.5-15.5) % Lymphocytes # 0.3 L (1.0-4.8) k/uL Potassium 3.2 L (3.5-5.1) mmol/L BUN 22 H (7-17) mg/dL Glucose 102 H (74-99) mg/dL Procalcitonin 0.29 H (0.02-0.09) ng/mL Assessment and Plan Assessment: Acute COVID-19 infection with diarrhea and muscle aches with suspected COVID-19 pneumonia. Initiated on Remdesivir Acute hypoxemic respiratory failure secondary to above your currently on 3 L nasal cannula Hypokalemia secondary to diarrhea, improving Atrial fibrillation with rapid ventricular response, anticoagulated with Xarelto History of hypertension Hyperlipidemia Anxiety Plan: The patient was seen and evaluated Labs and medications reviewed Day #2 of Remdesivir Continue vitamin supplements Continue Decadron Titrate the FiO2 as tolerated Follow-up chest x-ray in a.m. We will continue to follow I have personally seen and examined the patient, performed the documentation and the assessment and plan as written. Number of minutes spent on the visit: 10.
[2022-11-04] MEDS: REMDESIVIR 100 MG in SODIUM CHLORIDE 0.9% 250 ML IVPB SCH (10:53)
[2022-11-04] MEDS ORDERED: Magnesium Replacement Protocol 1 EACH MISC MISCELLANE PRN (12:10)
--- NOTE | 2022-11-04 16:38 | P.PN ---
Subjective Progress Note Date: 11/04/22 Principal diagnosis: Covid 19 pneumonia Patient is a 71-year-old female with a past medical history significant for hypertension hyperlipidemia atrial fibrillation on Xarelto presenting to the hospital with increasing shortness of breath body aches symptom has been going on for about a week before presentation to the hospital patient did have a positive home COVID test, patient did have evidence of Covid 19 pneumonia and hypoxemia On today's evaluation had that is 11/04/2022, the patient denies having any fever or any chills, the patient is breathing slightly comfortably and is currently down to 2.5 L nasal cannula oxygen, patient denies having any chest painor cough no nausea no vomiting and no further diarrhea Objective - Vital Signs Vital signs: Vital Signs Temp 98.1 F 11/04/22 15:00 Pulse 92 11/04/22 15:00 Resp 16 11/04/22 15:00 BP 132/84 11/04/22 15:00 Pulse Ox 92 L 11/04/22 15:00 FiO2 Intake & Output 11/03/22 11/04/22 11/04/22 18:59 06:59 18:59 Intake Total 480 598 Balance 480 598 Intake: Oral 480 598 Other: Voiding Method Toilet Toilet Toilet # Voids 3 2 2 # Bowel Movements 1 - Exam GENERAL DESCRIPTION: An elderly female lying in bed in no distress RESPIRATORY SYSTEM: Unlabored breathing , decreased breath sounds at bases HEART: S1 S2 regular rate and rhythm , ABDOMEN: Soft , no tenderness EXTREMITIES: No edema feet - Labs CBC & Chem 7: 11/04/22 07:46 11/04/22 07:46 Labs: Abnormal Lab Results - Last 24 Hours (Table) 11/03/22 11/04/22 11/04/22 Range/Units 11:40 07:46 07:46 WBC 2.9 L (3.8-10.6) k/uL RDW 16.4 H (11.5-15.5) % Lymphocytes # 0.3 L (1.0-4.8) k/uL Potassium 3.2 L (3.5-5.1) mmol/L BUN 22 H (7-17) mg/dL Glucose 102 H (74-99) mg/dL Procalcitonin 0.29 H (0.02-0.09) ng/mL Assessment and Plan (1) COVID-19 Current Visit: Yes Status: Acute Code(s): U07.1 - COVID-19 SNOMED Code(s): 479473208 Plan: 1patient was in the hospital with increasing shortness of breath and cough in this patient with positive COVID test that has been going on for about a week ev idence of hypoxemia and interstitial pneumonia on the chest x-ray secondary to COVID-19 infection clinically doubt secondary bacterial infection 2-patient did have mildly elevated pro calcitonin clinically doubt secondary bacterial pneumonia and we will hold on any systemic antibiotic therapy at this point 3-patient seemed to have shown clinical Improvement and well to continue with the dexamethasone remdesivir #2 zinc and ascorbic acid 4-droplet isolation and respiratory support Time with Patient: Less than 30
[2022-11-04] MEDS ORDERED: guaiFENesin-DM 600/30MG 1 EACH TAB.ER.12H PO PRN (18:12)
[2022-11-04] MEDS: NITROFURANTOIN MACROCRYSTAL 50 MG PO SCH (19:53)
[2022-11-04] MEDS: ATORVASTATIN 10 MG TAB PO SCH (19:56)
[2022-11-04] MEDS: RIVAROXABAN 20 MG TAB PO SCH (19:57)
[2022-11-04] MEDS: SERTRALINE 50 MG TAB PO SCH (19:57)
--- NOTE | 2022-11-04 22:45 | PN ---
PROGRESS NOTE DATE OF SERVICE: 11/04/2022 SUBJECTIVE: This is a 71-year-old woman who was admitted with acute COVID-19 infection possibly has a bilateral COVID-19 pneumonia. The patient is started the patient interestingly also had leukopenia with neutropenia also. PAST MEDICAL HISTORY: Reviewed. REVIEW OF SYSTEMS: A 14-point review is negative except as mentioned earlier. CURRENT MEDICATIONS: Reviewed include remdesivir. Dose and rest of medication noted. PHYSICAL EXAMINATION: VITAL SIGNS: Pulse is 82, blood pressure 140/80, respirations 16. HEENT: Conjunctivae normal. NECK: No jugular venous distention. CARDIOVASCULAR: S1, S2. RESPIRATORY: Bilateral scattered rhonchi. ABDOMEN: Soft, nontender. LEGS: No edema. NERVOUS SYSTEM: No focal deficits. LABORATORY DATA: ASSESSMENT: 1. Acute coronavirus disease-19 infection with acute coronavirus disease-19 bilateral pneumonia with acute hypoxic respiratory failure, on supplemental oxygen and remdesivir daily. 2. Hypokalemia. 3. Leukopenia, neutropenia. 4. Atrial fibrillation. 5. Hyperlipidemia. 6. Multiple medical issues. RECOMMENDATIONS: This is a 71-year-old woman who presented with multiple complex medical issues, we will monitor the patient closely. We recommend to continue the remdesivir. Procalcitonin is elevated but secondary bacterial infection is doubtful per Dr. Fields. We will continue to monitor. Follow the cultures. Otherwise, the prognosis is extremely guarded because of the multiple complex medical issues as listed above, and the patient for putting order yesterday, but somehow the patient is in observation, please note. MMODL / IJN: [id number] /
[2022-11-05 07:08] LABS: Anisocytosis Slight; Basophils % (A) 0 %; Eosinophils % (A) 0 %; HCT 39.1 % (34.0-46.0); HGB 12.8 gm/dL (11.4-16.0); Lymphocytes # (A) 0.3 k/uL (1.0-4.8); Lymphocytes % (A) 8 %; MCH 28.2 pg (25.0-35.0); MCHC 32.8 g/dL (31.0-37.0); MCV 85.8 fL (80.0-100.0); Mean Platelet Volume 8.5; Monocytes # (A) 0.2 k/uL (0-1.0); Monocytes % (A) 5 %; Neutrophils # (A) 3.7 k/uL (1.3-7.7); Neutrophils % (A) 85 %; Platelet Count 210 k/uL (150-450); Poikilocytosis Slight; RBC 4.55 m/uL (3.80-5.40); RDW 16.7 % (11.5-15.5); WBC 4.4 k/uL (3.8-10.6)
[2022-11-05 07:35] LABS: African American GFR (CKD) >90 (>60 ml/min/1.73 sqM); Anion Gap 12 mmol/L; Blood Urea Nitrogen 30 mg/dL (7-17); Calcium 8.8 mg/dL (8.4-10.2); Carbon Dioxide 20 mmol/L (22-30); Chloride 107 mmol/L (98-107); Glucose 97 mg/dL (74-99); Non-African American GFR(CKD) 84 (>60 ml/min/1.73 sqM); Sodium 139 mmol/L (137-145)
[2022-11-05 07:37] LABS: Potassium 3.5 mmol/L (3.5-5.1)
[2022-11-05 07:38] LABS: Magnesium 1.8 mg/dL (1.6-2.3)
[2022-11-05] MEDS: REMDESIVIR 100 MG in SODIUM CHLORIDE 0.9% 250 ML IVPB SCH (09:21)
[2022-11-05] MEDS: ZINC SULFATE 220 MG CAP PO SCH (09:21)
[2022-11-05] MEDS: dexAMETHasone 2 MG TAB PO SCH (09:21)
[2022-11-05] MEDS: METOPROLOL TARTRATE 50 MG TAB PO SCH ×2 (09:21→20:52)
[2022-11-05] MEDS: lisinopriL 5 MG TAB PO SCH ×2 (09:21→20:52)
[2022-11-05] MEDS: CHOLECALCIFEROL 25 MCG (1000 IU) TABLET PO SCH (09:22)
--- NOTE | 2022-11-05 09:52 | XR ---
EXAMINATION TYPE: XR chest 1V portable DATE OF EXAM: 11/05/2022 COMPARISON: 11/02/2022 INDICATION: Covid TECHNIQUE: Single frontal view of the chest is obtained. FINDINGS: The heart size is normal. The pulmonary vasculature is normal. Mild diffuse infiltrate is present. Findings are nonspecific but can be compatible with atypical pneu monia. Findings are similar to comparison. Continued follow-up is recommended. IMPRESSION: 1. Scattered mild diffuse patchy infiltrates can be compatible with atypical pneumonia. Follow-up is recommended.
--- NOTE | 2022-11-05 11:06 | P.PN ---
Subjective Progress Note Date: 11/05/22 This is a pleasant 71-year-old female patient with a known history of atrial fibrillation anticoagulated with Xarelto, hypertension, hyperlipidemia and anxiety. Lifelong nonsmoker. One week ago she developed increasing shortness of breath body aches diarrhea cough and congestion. She did have a positive home CoVID test. Her symptoms continued to worsen and she came to the emergency room yesterday. Chest x-ray did reveal diffuse interstitial pattern. No sizable pneumothorax or pleural effusions. White count 2.6. Hemoglobin 13.4. Sodium 138. Potassium 2.7. Bicarb 26. BUN 14. Creatinine 0.71. Close 129. AST 45. ALT 24. Influenza screen negative. RSV screen negative. COVID-19 testing positive. She is seen today in consultation on the regular medical floor. Currently sitting up in a chair at the bedside. Awake and alert in no acute distress. She is maintaining O2 saturations at 91% on room air. 97% on 2 L nasal cannula. Afebrile. Somewhat tachycardic. In atrial fibrillation. Afebrile. The patient is seen today 11/04/2022 in follow-up on the regular medical floor. She is sitting up in a chair at the bedside. Awake and alert in no acute distress.. Feeling a bit better today compared to yesterday. Maintaining O2 saturations in the 90s on 3 L/m per nasal cannula. She's afebrile. Less tachycardic. Remdesivir day #2. Continues on Decadron, vitamin supplements. Anticoagulated with Xarelto. White count 2.9. Hemoglobin 11.9. Platelets 180. Sodium 139. Potassium 3.2. Bicarb 28. BUN 22. Creatinine 0.79. Glucose 102. Procalcitonin 0.29. Will have follow-up chest x-ray in a.m. The patient is seen today 11/05/2022 in follow-up on the regular medical floor. She is currently sitting up in a chair at the bedside. Awake and alert in no acute distress. Good O2 saturations in the 90s on 2-1/2 L/m per nasal cannula. No IV fluids. She is feeling back to her baseline. Chest x-ray continues to show some scattered mild diffuse patchy infiltrates consistent with COVID-19. White count 4.4. Hemoglobin is up 12.8. Platelets 210. Sodium 139. Potassium 3.5. Bicarb 20. BUN 30. Creatinine 0.74. This is day #3 of Remdesivir. She is continued on vitamin supplements, Decadron, anticoagulated with Xarelto. Objective - Vital Signs Vital signs: Vital Signs Temp 98.0 F 11/05/22 07:00 Pulse 75 11/05/22 07:00 Resp 18 11/05/22 07:00 BP 125/84 11/05/22 07:00 Pulse Ox 87 L 11/05/22 08:53 FiO2 21 11/05/22 08:53 Intake & Output 11/04/22 11/05/22 11/05/22 18:59 06:59 18:59 Intake Total 716 59 Balance 716 59 Intake: Oral 716 59 Other: Voiding Method Toilet Toilet Toilet # Voids 2 3 - Exam GENERAL EXAM: Alert, up in a chair, pleasant 71 year old female, on 2.5 L nasal cannula, comfortable in no apparent distress. HEAD: Normocephalic. EYES: Normal reaction of pupils, equal size. NOSE: Clear with pink turbinates. THROAT: No erythema or exudates. NECK: No masses, no JVD. CHEST: No chest wall deformity. LUNGS: Equal air entry with crackles in the posterior bases. CVS: S1 and S2 normal with no audible murmur, regular rhythm. ABDOMEN: No hepatosplenomegaly, normal bowel sounds, no guarding or rigidity. SPINE: No scoliosis or deformity SKIN: No rashes CENTRAL NERVOUS SYSTEM: No focal deficits, tone is normal in all 4 extremities. EXTREMITIES: There is no peripheral edema. No clubbing, no cyanosis. Peripheral pulses are intact. - Labs CBC & Chem 7: 11/05/22 06:41 11/05/22 06:41 Labs: Abnormal Lab Results - Last 24 Hours (Table) 11/05/22 11/05/22 Range/Units 06:41 06:41 RDW 16.7 H (11.5-15.5) % Lymphocytes # 0.3 L (1.0-4.8) k/uL Carbon Dioxide 20 L (22-30) mmol/L BUN 30 H (7-17) mg/dL Assessment and Plan Assessment: Acute COVID-19 infection with diarrhea and muscle aches with suspected COVID-19 pneumonia. Initiated on Remdesivir Acute hypoxemic respiratory failure secondary to above, currently on 2.5 L nasal cannula Hypokalemia secondary to diarrhea, improving Atrial fibrillation with rapid ventricular response, anticoagulated with Xarelto History of hypertension Hyperlipidemia Anxiety Plan: The patient was seen and evaluated Chest x-ray, labs and medications reviewed Day #3 of Remdesivir Continue vitamin supplements Continue Decadron Titrate the FiO2 as tolerated Could be discharged home from the pulmonary standpoint Should be evaluated for possible home oxygen I have personally seen and examined the patient, performed the documentation and the assessment and plan as written. Number of minutes spent on the visit: 10.
--- NOTE | 2022-11-05 16:55 | P.PN ---
Subjective Progress Note Date: 11/05/22 Principal diagnosis: Covid 19 pneumonia Patient is a 71-year-old female with a past medical history significant for hypertension hyperlipidemia atrial fibrillation on Xarelto presenting to the hospital with increasing shortness of breath body aches symptom has been going on for about a week before presentation to the hospital patient did have a positive home COVID test, patient did have evidence of Covid 19 pneumonia and hypoxemia On today's evaluation had that is 11/05/2022, the patient remains to be afebrile, the patient is breathing slightly comfortably and is down to 2 L nasal cannula oxygen, patient denies having any chest pain , no worsening cough no nausea no vomiting and no further diarrhea Objective - Vital Signs Vital signs: Vital Signs Temp 98.0 F 11/05/22 07:00 Pulse 75 11/05/22 07:00 Resp 18 11/05/22 07:00 BP 125/84 11/05/22 07:00 Pulse Ox 87 L 11/05/22 08:53 FiO2 21 11/05/22 08:53 Intake & Output 11/04/22 11/05/22 11/05/22 18:59 06:59 18:59 Intake Total 716 59 Balance 716 59 Intake: Oral 716 59 Other: Voiding Method Toilet Toilet Toilet # Voids 2 3 - Exam GENERAL DESCRIPTION: An elderly female lying in bed in no distress RESPIRATORY SYSTEM: Unlabored breathing , decreased breath sounds at bases HEART: S1 S2 regular rate and rhythm , ABDOMEN: Soft , no tenderness EXTREMITIES: No edema feet - Labs CBC & Chem 7: 11/05/22 06:41 11/05/22 06:41 Labs: Abnormal Lab Results - Last 24 Hours (Table) 11/05/22 11/05/22 Range/Units 06:41 06:41 RDW 16.7 H (11.5-15.5) % Lymphocytes # 0.3 L (1.0-4.8) k/uL Carbon Dioxide 20 L (22-30) mmol/L BUN 30 H (7-17) mg/dL Assessment and Plan (1) COVID-19 Current Visit: Yes Status: Acute Code(s): U07.1 - COVID-19 SNOMED Code(s): 030546277 Plan: 1patient was in the hospital with increasing shortness of breath and cough in this patient with positive COVID test that has been going on for about a week evidence of hypoxemia and interstitial pneumonia on the chest x-ray secondary to COVID-19 infection clinically doubt secondary bacterial infection 2-patient did have mildly elevated pro calcitonin clinically doubt secondary bacterial pneumonia and we will hold on any systemic antibiotic therapy at this point 3-patient slowly clinical improvement, patient to continue with the dexamethasone remdesivir #3 zinc and ascorbic acid, monitor clinical course closely Time with Patient: Less than 30
--- NOTE | 2022-11-05 18:08 | P.PN ---
Subjective Progress Note Date: 11/05/22 This is a 71-year-old woman who was admitted with acute covid Pneumonia along with hypoxia and is being closely followed with pulmonary and infectious disease following. Patient is maintained on 2 L via nasal cannula and continues on IV steroids along with Remdesivir day 3 of 4. Patient reports she continues with not much of an appetite and continued shortness of breath with weakness. Pulmonary following and will be evaluated for home O2. Patient is currently afebrile with no reports of chest pain or palpitations. No reports of nausea or vomiting and is tolerating little diet. Encouraged increased activity as tolerated. Review of systems: Constitutional: No reports of fatigue, fever, or chills Cardiovascular: No reports of chest pain or palpitations Respiratory: reports of shortness of breath and cough GI: no reports of nausea, no reports of vomiting, reports not much of an appetite. : No reports of dysuria or retention Neurovascular: reports of generalized weakness, All medications have been reviewed PHYSICAL EXAMINATION: GENERAL: The patient is alert and oriented x4, Well developed, well nourished. Ill-appearing HEENT: Pupils are round and equally reacting to light. EOMI. no scleral icterus. No conjunctival pallor. Normocephalic, atraumatic. No pharyngeal erythema. No thyromegaly. CARDIOVASCULAR: S1 and S2 muffled PULMONARY: diminished breath sounds bilaterally with some scattered rhonchi and mild expiratory wheezing noted. ABDOMEN: soft. Nontender on exam. obese. non-distended, normoactive bowel sounds. No palpable organomegaly. MUSCULOSKELETAL: No joint swelling or deformity. EXTREMITIES: No cyanosis, clubbing, or pedal edema. NEUROLOGICAL: Gross neurological examination did not reveal any focal deficits. Diffuse weakness SKIN: No rashes. Assessment: Acute Covid 19 infection with acute COVID-19 bilateral pneumonia Acute hypoxic respiratory failure, secondary to COVID-19 pneumonia hypokalemia Atrial fibrillation Leukopenia, neutropenia Hyperlipidemia GI prophylaxis DVT prophylaxis Full code Plan: Recommend to continue with current medications and management with pulmonary and infectious disease following. Patient is maintained on IV steroids along with Remdesivir #3 of 4. Patient continues on 2 L via nasal cannula and does not normally wear oxygen in the outpatient setting and will do home O2 eval Will discuss further with infectious disease about discharge planning and pulmonary following as well Recommend continue with albuterol inhaler along with IV steroids and will follow-up with repeat labs Encouraged increased activity as tolerated Possible discharge in the next 24-48 hours The impression and plan of care has been dictated by Lata Lemos, nurse practitioner as directed. Dr. Oriana MD I have performed a history and examination and MDM of this patient, discussed the same with the dictator, and agree with the dictator's assessment and plan as written ,documented as a scribe. Based on total visit time, I have performed more than 50% of the visit. Any additional findings or plans will be noted. Objective - Vital Signs Vital signs: Vital Signs Temp 98.0 F 11/05/22 07:00 Pulse 75 11/05/22 07:00 Resp 18 11/05/22 07:00 BP 125/84 11/05/22 07:00 Pulse Ox 87 L 11/05/22 08:53 FiO2 21 11/05/22 08:53 Intake & Output 11/04/22 11/05/22 11/05/22 18:59 06:59 18:59 Intake Total 716 59 Balance 716 59 Intake: Oral 716 59 Other: Voiding Method Toilet Toilet # Voids 2 3 - Labs CBC & Chem 7: 11/05/22 06:41 11/05/22 06:41 Labs: Abnormal Lab Results - Last 24 Hours (Table) 11/05/22 11/05/22 Range/Units 06:41 06:41 RDW 16.7 H (11.5-15.5) % Lymphocytes # 0.3 L (1.0-4.8) k/uL Carbon Dioxide 20 L (22-30) mmol/L BUN 30 H (7-17) mg/dL
[2022-11-05] MEDS ORDERED: MAGNESIUM SULFATE-D5W PMX 1 GM in DEXTROSE/WATER 1 100ML.BAG IVPB ONE (18:16)
[2022-11-05] MEDS ORDERED: POTASSIUM CHLORIDE ER 20 MEQ TAB.ER PO STA (18:16)
[2022-11-05] MEDS: NITROFURANTOIN MACROCRYSTAL 50 MG PO SCH (20:12)
[2022-11-05] MEDS: RIVAROXABAN 20 MG TAB PO SCH (20:52)
[2022-11-05] MEDS: SERTRALINE 50 MG TAB PO SCH (20:52)
[2022-11-05] MEDS: ATORVASTATIN 10 MG TAB PO SCH (20:52)
[2022-11-06 08:57] LABS: African American GFR (CKD) 81.5 (60.0-200.0); Anion Gap 10.6 mmol/L (10.00-18.00); BUN/Creat Ratio 33.57 Ratio (12.00-20.00); Blood Urea Nitrogen 28.4 mg/dL (9.0-27.0); Calcium 8.9 mg/dL (8.7-10.3); Carbon Dioxide 26.9 mmol/L (20.0-27.5); Magnesium 2.1 mg/dL (1.5-2.4); Non-African American GFR(CKD) 70.3 (60.0-200.0); Potassium 3.7 mmol/L (3.5-5.5)
[2022-11-06] MEDS: REMDESIVIR 100 MG in SODIUM CHLORIDE 0.9% 250 ML IVPB SCH (08:57)
[2022-11-06] MEDS: CHOLECALCIFEROL 25 MCG (1000 IU) TABLET PO SCH (08:58)
[2022-11-06] MEDS: ZINC SULFATE 220 MG CAP PO SCH (08:58)
[2022-11-06] MEDS: METOPROLOL TARTRATE 50 MG TAB PO SCH ×2 (08:58→21:36)
[2022-11-06] MEDS: lisinopriL 5 MG TAB PO SCH ×2 (08:58→21:37)
[2022-11-06] MEDS: dexAMETHasone 2 MG TAB PO SCH (08:58)
[2022-11-06] MEDS: ASCORBIC ACID 500 MG TAB PO SCH (08:58)
--- NOTE | 2022-11-06 11:09 | P.PN ---
Subjective Progress Note Date: 11/06/22 This is a pleasant 71-year-old female patient with a known history of atrial fibrillation anticoagulated with Xarelto, hypertension, hyperlipidemia and anxiety. Lifelong nonsmoker. One week ago she developed increasing shortness of breath body aches diarrhea cough and congestion. She did have a positive home CoVID test. Her symptoms continued to worsen and she came to the emergency room yesterday. Chest x-ray did reveal diffuse interstitial pattern. No sizable pneumothorax or pleural effusions. White count 2.6. Hemoglobin 13.4. Sodium 138. Potassium 2.7. Bicarb 26. BUN 14. Creatinine 0.71. Close 129. AST 45. ALT 24. Influenza screen negative. RSV screen negative. COVID-19 testing positive. She is seen today in consultation on the regular medical floor. Currently sitting up in a chair at the bedside. Awake and alert in no acute distress. She is maintaining O2 saturations at 91% on room air. 97% on 2 L nasal cannula. Afebrile. Somewhat tachycardic. In atrial fibrillation. Afebrile. The patient is seen today 11/04/2022 in follow-up on the regular medical floor. She is sitting up in a chair at the bedside. Awake and alert in no acute distress.. Feeling a bit better today compared to yesterday. Maintaining O2 saturations in the 90s on 3 L/m per nasal cannula. She's afebrile. Less tachycardic. Remdesivir day #2. Continues on Decadron, vitamin supplements. Anticoagulated with Xarelto. White count 2.9. Hemoglobin 11.9. Platelets 180. Sodium 139. Potassium 3.2. Bicarb 28. BUN 22. Creatinine 0.79. Glucose 102. Procalcitonin 0.29. Will have follow-up chest x-ray in a.m. The patient is seen today 11/05/2022 in follow-up on the regular medical floor. She is currently sitting up in a chair at the bedside. Awake and alert in no acute distress. Good O2 saturations in the 90s on 2-1/2 L/m per nasal cannula. No IV fluids. She is feeling back to her baseline. Chest x-ray continues to show some scattered mild diffuse patchy infiltrates consistent with COVID-19. White count 4.4. Hemoglobin is up 12.8. Platelets 210. Sodium 139. Potassium 3.5. Bicarb 20. BUN 30. Creatinine 0.74. This is day #3 of Remdesivir. She is continued on vitamin supplements, Decadron, anticoagulated with Xarelto. The patient is seen today 11/06/2022 in follow-up on the regular medical floor. She is awake and alert in no acute distress. Sitting up in a chair. Feeling better today compared to yesterday. Still with some complaints of sinus drain age otherwise no worsening shortness of breath, cough or congestion. This is day #4 of Remdesivir. She is continued on Decadron, vitamin supplements. Anticoagulated with Xarelto. Sodium 142. Potassium 3.7. Bicarb 27. BUN 28. Creatinine 0.8. Glucose 103. She was given a 6 minute walk test she did desaturate to 84% and is qualifying for home oxygen. He covered up into the 90s on 2 L/m per nasal cannula. Objective - Vital Signs Vital signs: Vital Signs Temp 98.2 F 11/06/22 07:00 Pulse 68 11/06/22 09:03 Resp 18 11/06/22 07:00 BP 144/77 11/06/22 07:00 Pulse Ox 89 L 11/06/22 09:03 FiO2 21 11/05/22 08:53 Intake & Output 11/05/22 11/06/22 11/06/22 18:59 06:59 18:59 Intake Total 177 Balance 177 Intake: Oral 177 Other: Voiding Method Toilet Toilet # Voids 2 2 - Exam GENERAL EXAM: Alert, 71 year old female, on 2 L nasal cannula, comfortable in no apparent distress. HEAD: Normocephalic. EYES: Normal reaction of pupils, equal size. NOSE: Clear with pink turbinates. THROAT: No erythema or exudates. NECK: No masses, no JVD. CHEST: No chest wall deformity. LUNGS: Equal air entry with crackles in the posterior bases. CVS: S1 and S2 normal with no audible murmur, regular rhythm. ABDOMEN: No hepatosplenomegaly, normal bowel sounds, no guarding or rigidity. SPINE: No scoliosis or deformity SKIN: No rashes CENTRAL NERVOUS SYSTEM: No focal deficits, tone is normal in all 4 extremities. EXTREMITIES: There is no peripheral edema. No clubbing, no cyanosis. Peripheral pulses are intact. - Labs CBC & Chem 7: 11/05/22 06:41 11/06/22 04:22 Labs: Abnormal Lab Results - Last 24 Hours (Table) 11/06/22 Range/Units 04:22 BUN 28.4 H (9.0-27.0) mg/dL BUN/Creatinine Ratio 33.57 H (12.00-20.00) Ratio Assessment and Plan Assessment: Acute COVID-19 infection with diarrhea and muscle aches with suspected COVID-19 pneumonia. Initiated on Remdesivir Acute hypoxemic respiratory failure secondary to above, currently on 2 L nasal cannula Hypokalemia secondary to diarrhea, improving Atrial fibrillation with rapid ventricular response, anticoagulated with Xarelto History of hypertension Hyperlipidemia Anxiety Plan: The patient was seen and evaluated Labs and medications reviewed Day #4 of Remdesivir Continue vitamin supplements Continue Decadron Titrate the FiO2 as tolerated Should be evaluated for possible home oxygen Could be discharged home from the pulmonary standpoint I have personally seen and examined the patient, performed the documentation and the assessment and plan as written. Number of minutes spent on the visit: 10.
--- NOTE | 2022-11-06 19:34 | P.PN ---
Subjective Progress Note Date: 11/06/22 Principal diagnosis: Covid 19 pneumonia Patient is a 71-year-old female with a past medical history significant for hypertension hyperlipidemia atrial fibrillation on Xarelto presenting to the hospital with increasing shortness of breath body aches symptom has been going on for about a week before presentation to the hospital patient did have a positive home COVID test, patient did have evidence of Covid 19 pneumonia and hypoxemia On today's evaluation had that is 11/06/2022, the patient continues to be afebrile, the patient is breathing slightly comfortably on 2 L nasal cannula oxygen, patient denies having any chest pain , patient cough is decreased intensity remains to be dry in nature no nausea no vomiting no abdominal pain or diarrhea Objective - Vital Signs Vital signs: Vital Signs Temp 98.2 F 11/06/22 07:00 Pulse 68 11/06/22 09:03 Resp 18 11/06/22 07:00 BP 144/77 11/06/22 07:00 Pulse Ox 89 L 11/06/22 09:03 FiO2 21 11/05/22 08:53 Intake & Output 11/05/22 11/06/22 11/06/22 18:59 06:59 18:59 Intake Total 177 Balance 177 Intake: Oral 177 Other: Voiding Method Toilet Toilet # Voids 2 2 - Exam GENERAL DESCRIPTION: An elderly female lying in bed in no distress RESPIRATORY SYSTEM: Unlabored breathing , decreased breath sounds at bases HEART: S1 S2 regular rate and rhythm , ABDOMEN: Soft , no tenderness EXTREMITIES: No edema feet - Labs CBC & Chem 7: 11/05/22 06:41 11/06/22 04:22 Labs: Abnormal Lab Results - Last 24 Hours (Table) 11/06/22 Range/Units 04: BUN 28.4 H (9.0-27.0) mg/dL BUN/Creatinine Ratio 33.57 H (12.00-20.00) Ratio Assessment and Plan (1) COVID-19 Current Visit: Yes Status: Acute Code(s): U07.1 - COVID-19 SNOMED Code(s): 874048973 Plan: 1patient was in the hospital with increasing shortness of breath and cough in this patient with positive COVID test that has been going on for about a week evidence of hypoxemia and interstitial pneumonia on the chest x-ray secondary to COVID-19 infection clinically doubt secondary bacterial infection 2-patient did have mildly elevated pro calcitonin clinically doubt secondary bacterial pneumonia and we will hold on any systemic antibiotic therapy at this point 3-patient patient has shown clinical improvement and the patient will continue with the current treatment of dexamethasone remdesivir #4 zinc and ascorbic acid, monitor clinical course closely Time with Patient: Less than 30
[2022-11-06] MEDS: ATORVASTATIN 10 MG TAB PO SCH (21:36)
[2022-11-06] MEDS: NITROFURANTOIN MACROCRYSTAL 50 MG PO SCH (21:36)
[2022-11-06] MEDS: SERTRALINE 50 MG TAB PO SCH (21:36)
[2022-11-06] MEDS: RIVAROXABAN 20 MG TAB PO SCH (21:37)
--- NOTE | 2022-11-07 05:49 | P.PN ---
Subjective Progress Note Date: 11/06/22 This is a 71-year-old woman who was admitted with acute covid Pneumonia along with hypoxia and is being closely followed with pulmonary and infectious disease following. Patient is maintained on 2 L via nasal cannula and continues on IV steroids along with Remdesivir day 3 of 4. Patient reports she continues with not much of an appetite and continued shortness of breath with weakness. Pulmonary following and will be evaluated for home O2. Patient is currently afebrile with no reports of chest pain or palpitations. No reports of nausea or vomiting and is tolerating little diet. Encouraged increased activity as tolerated. 11/06/2022 Patient is seen and evaluated in follow-up today with pulmonary and infectious disease following. Patient is maintained on Remdesivir has today's dose and to pedersen remaining and will complete. Patient is maintained on IV steroids along with inhalers and is requiring home oxygen. Home O2 evaluation done and patient desats quickly on room air requiring 2 L. Case management to follow and will arrange for this in the outpatient setting. Encourage patient to continue wearing the oxygen and follow-up with pulmonary outpatient. Patient is currently afebrile denies worsening shortness of breath although does report some congestion and cough, denies chest pain or palpitations. Patient is tolerating diet no reports of nausea or vomiting noted. Encouraged increased activity as tolerated. Review of systems: Constitutional: No reports of fatigue, fever, or chills Cardiovascular: No reports of chest pain or palpitations Respiratory: reports of shortness of breath and cough GI: no reports of nausea, no reports of vomiting, reports not much of an appetite. : No reports of dysuria or retention Neurovascular: reports of generalized weakness, All medications have been reviewed PHYSICAL EXAMINATION: GENERAL: The patient is alert and oriented x4, Well developed, well nourished. Ill-appearing HEENT: Pupils are round and equally reacting to light. EOMI. no scleral icterus. No conjunctival pallor. Normocephalic, atraumatic. No pharyngeal erythema. No thyromegaly. CARDIOVASCULAR: S1 and S2 muffled PULMONARY: diminished breath sounds bilaterally with some scattered rhonchi and mild expiratory wheezing noted. ABDOMEN: soft. Nontender on exam. obese. non-distended, normoactive bowel sounds. No palpable organomegaly. MUSCULOSKELETAL: No joint swelling or deformity. EXTREMITIES: No cyanosis, clubbing, or pedal edema. NEUROLOGICAL: Gross neurological examination did not reveal any focal deficits. Diffuse weakness SKIN: No rashes. Assessment: Acute Covid 19 infection with acute COVID-19 bilateral pneumonia Acute hypoxic respiratory failure, secondary to COVID-19 pneumonia hypokalemia, improved Atrial fibrillation Leukopenia, neutropenia Hyperlipidemia GI prophylaxis DVT prophylaxis Full code Plan: Recommend to continue with current medications and management with pulmonary and infectious disease following. Patient is maintained on IV steroids along with Remdesivir #4 and is to receive another dose tomorrow to complete the course Patient continues on 2 L via nasal cannula and does not normally wear oxygen in the outpatient setting and will do require home O2 as her oxygen saturations dropped quickly on room air. Case management following a prescription provided to arrange for oxygen on discharge Will discuss further with infectious disease about discharge planning and pulmonary following as well Recommend continue with albuterol inhaler along with IV steroids and will follow-up with repeat labs Encouraged increased activity as tolerated Possible discharge in the next 24-48 hours The impression and plan of care has been dictated by Lata Lemos, nurse practitioner as directed. Dr. Oriana MD I have performed a history and examination and MDM of this patient, discussed the same with the dictator, and agree with the dictator's assessment and plan as written ,documented as a scribe. Based on total visit time, I have performed more than 50% of the visit. Any additional findings or plans will be noted. Objective - Vital Signs Vital signs: Vital Signs Temp 98.2 F 11/06/22 07:00 Pulse 68 11/06/22 09:03 Resp 18 11/06/22 07:00 BP 144/77 11/06/22 07:00 Pulse Ox 89 L 11/06/22 09:03 FiO2 21 11/05/22 08:53 Intake & Output 11/05/22 11/06/22 11/06/22 18:59 06:59 18:59 Intake Total 177 Balance 177 Intake: Oral 177 Other: Voiding Method Toilet Toilet # Voids 2 2 - Labs CBC & Chem 7: 11/05/22 06:41 11/06/22 04:22 Labs: Abnormal Lab Results - Last 24 Hours (Table) 11/06/22 Range/Units 04:22 BUN 28.4 H (9.0-27.0) mg/dL BUN/Creatinine Ratio 33.57 H (12.00-20.00) Ratio
[2022-11-07 07:35] VITALS: BP 137/86; PULSE 62; RESP 16; TEMP 98.1
[2022-11-07] MEDS: REMDESIVIR 100 MG in SODIUM CHLORIDE 0.9% 250 ML IVPB SCH (09:05)
[2022-11-07] MEDS: METOPROLOL TARTRATE 50 MG TAB PO SCH (09:05)
[2022-11-07] MEDS: dexAMETHasone 2 MG TAB PO SCH (09:05)
[2022-11-07] MEDS: ZINC SULFATE 220 MG CAP PO SCH (09:05)
[2022-11-07] MEDS: ASCORBIC ACID 500 MG TAB PO SCH (09:06)
[2022-11-07] MEDS: CHOLECALCIFEROL 25 MCG (1000 IU) TABLET PO SCH (09:06)
[2022-11-07] MEDS: lisinopriL 5 MG TAB PO SCH (09:06)
[2022-11-07 09:56] LABS: African American GFR (CKD) 89 (>60 ml/min/1.73 sqM); Anion Gap 7 mmol/L; Blood Urea Nitrogen 28 mg/dL (7-17); Calcium 8.6 mg/dL (8.4-10.2); Carbon Dioxide 29 mmol/L (22-30); Chloride 105 mmol/L (98-107); Glucose 83 mg/dL (74-99); Non-African American GFR(CKD) 77 (>60 ml/min/1.73 sqM); Potassium 3.3 mmol/L (3.5-5.1); Sodium 141 mmol/L (137-145)
[2022-11-07] MEDS: POTASSIUM CHLORIDE ER 20 MEQ TAB.ER PO SCH ×2 (10:48→11:52)
--- NOTE | 2022-11-07 10:54 | P.PN ---
Subjective Progress Note Date: 11/07/22 This is a pleasant 71-year-old female patient with a known history of atrial fibrillation anticoagulated with Xarelto, hypertension, hyperlipidemia and anxiety. Lifelong nonsmoker. One week ago she developed increasing shortness of breath body aches diarrhea cough and congestion. She did have a positive home CoVID test. Her symptoms continued to worsen and she came to the emergency room yesterday. Chest x-ray did reveal diffuse interstitial pattern. No sizable pneumothorax or pleural effusions. White count 2.6. Hemoglobin 13.4. Sodium 138. Potassium 2.7. Bicarb 26. BUN 14. Creatinine 0.71. Close 129. AST 45. ALT 24. Influenza screen negative. RSV screen negative. COVID-19 testing positive. She is seen today in consultation on the regular medical floor. Currently sitting up in a chair at the bedside. Awake and alert in no acute distress. She is maintaining O2 saturations at 91% on room air. 97% on 2 L nasal cannula. Afebrile. Somewhat tachycardic. In atrial fibrillation. Afebrile. The patient is seen today 11/04/2022 in follow-up on the regular medical floor. She is sitting up in a chair at the bedside. Awake and alert in no acute distress.. Feeling a bit better today compared to yesterday. Maintaining O2 saturations in the 90s on 3 L/m per nasal cannula. She's afebrile. Less tachycardic. Remdesivir day #2. Continues on Decadron, vitamin supplements. Anticoagulated with Xarelto. White count 2.9. Hemoglobin 11.9. Platelets 180. Sodium 139. Potassium 3.2. Bicarb 28. BUN 22. Creatinine 0.79. Glucose 102. Procalcitonin 0.29. Will have follow-up chest x-ray in a.m. The patient is seen today 11/05/2022 in follow-up on the regular medical floor. She is currently sitting up in a chair at the bedside. Awake and alert in no acute distress. Good O2 saturations in the 90s on 2-1/2 L/m per nasal cannula. No IV fluids. She is feeling back to her baseline. Chest x-ray continues to show some scattered mild diffuse patchy infiltrates consistent with COVID-19. White count 4.4. Hemoglobin is up 12.8. Platelets 210. Sodium 139. Potassium 3.5. Bicarb 20. BUN 30. Creatinine 0.74. This is day #3 of Remdesivir. She is continued on vitamin supplements, Decadron, anticoagulated with Xarelto. The patient is seen today 11/06/2022 in follow-up on the regular medical floor. She is awake and alert in no acute distress. Sitting up in a chair. Feeling better today compared to yesterday. Still with some complaints of sinus drain age otherwise no worsening shortness of breath, cough or congestion. This is day #4 of Remdesivir. She is continued on Decadron, vitamin supplements. Anticoagulated with Xarelto. Sodium 142. Potassium 3.7. Bicarb 27. BUN 28. Creatinine 0.8. Glucose 103. She was given a 6 minute walk test she did desaturate to 84% and is qualifying for home oxygen. He covered up into the 90s on 2 L/m per nasal cannula. The patient is seen today 11/07/2022 in follow-up on the regular medical floor. Sitting up in a chair at the bedside. Awake and alert in no acute distress. Continues to maintain good O2 saturations in the 90s on room air now. Afebrile. Hemodynamically stable. This is day #5 of Remdesivir. No worsening shortness, cough or congestion. She is continued on Decadron, vitamin supplements, anticoagulated with Xarelto. Sodium 141. Potassium 3.3. Bicarb 29. BUN 20. Creatinine 0.79. Objective - Vital Signs Vital signs: Vital Signs Temp 98.1 F 11/07/22 07:21 Pulse 62 11/07/22 07:21 Resp 16 11/07/22 07:21 BP 137/86 11/07/22 07:21 Pulse Ox 90 L 11/07/22 07:21 FiO2 21 11/05/22 08:53 Intake & Output 11/06/22 11/07/22 11/07/22 18:59 06:59 18:59 Output Total 0 Balance 0 Output: Emesis 0 Other: Voiding Method Toilet # Voids 1 - Exam GENERAL EXAM: Alert, 71 year old female, on room air, up in a chair, comfortable in no apparent distress. HEAD: Normocephalic. EYES: Normal reaction of pupils, equal size. NOSE: Clear with pink turbinates. THROAT: No erythema or exudates. NECK: No masses, no JVD. CHEST: No chest wall deformity. LUNGS: Equal air entry with crackles in the posterior bases. CVS: S1 and S2 normal with no audible murmur, regular rhythm. ABDOMEN: No hepatosplenomegaly, normal bowel sounds, no guarding or rigidity. SPINE: No scoliosis or deformity SKIN: No rashes CENTRAL NERVOUS SYSTEM: No focal deficits, tone is normal in all 4 extremities. EXTREMITIES: There is no peripheral edema. No clubbing, no cyanosis. Peripheral pulses are intact. - Labs CBC & Chem 7: 11/05/22 06:41 11/07/22 09:07 Labs: Abnormal Lab Results - Last 24 Hours (Table) 11/07/22 Range/Units 09:07 Potassium 3.3 L (3.5-5.1) mmol/L BUN 28 H (7-17) mg/dL Assessment and Plan Assessment: Acute COVID-19 infection with diarrhea and muscle aches with suspected COVID-19 pneumonia. Initiated on Remdesivir Acute hypoxemic respiratory failure secondary to above, improved and on room air Hypokalemia secondary to diarrhea, improving Atrial fibrillation with rapid ventricular response, anticoagulated with Xarelto History of hypertension Hyperlipidemia Anxiety Plan: The patient was seen and evaluated Labs and medications reviewed Day #5 of Remdesivir Continue vitamin supplements Cleared for discharge from the pulmonary standpoint I have personally seen and examined the patient, performed the documentation and the assessment and plan as written. Number of minutes spent on the visit: 10.
--- NOTE | 2022-11-07 15:23 | P.PN ---
Subjective Progress Note Date: 11/07/22 Principal diagnosis: Covid 19 pneumonia Patient is a 71-year-old female with a past medical history significant for hypertension hyperlipidemia atrial fibrillation on Xarelto presenting to the hospital with increasing shortness of breath body aches symptom has been going on for about a week before presentation to the hospital patient did have a positive home COVID test, patient did have evidence of Covid 19 pneumonia and hypoxemia On today's evaluation that is 11/07/2022, the patient remains to be afebrile, the patient is breathing slightly comfortably on room airpatient denies having any chest pain , patient cough is decreased intensity remains to be dry in na ture no nausea no vomiting no abdominal pain or diarrhea Objective - Vital Signs Vital signs: Vital Signs Temp 98.1 F 11/07/22 07:21 Pulse 62 11/07/22 07:21 Resp 16 11/07/22 07:21 BP 137/86 11/07/22 07:21 Pulse Ox 90 L 11/07/22 07:21 FiO2 21 11/05/22 08:53 Intake & Output 11/06/22 11/07/22 11/07/22 18:59 06:59 18:59 Output Total 0 Balance 0 Output: Emesis 0 Other: Voiding Method Toilet # Voids 1 - Exam GENERAL DESCRIPTION: An elderly female lying in bed in no distress RESPIRATORY SYSTEM: Unlabored breathing , decreased breath sounds at bases HEART: S1 S2 regular rate and rhythm , ABDOMEN: Soft , no tenderness EXTREMITIES: No edema feet - Labs CBC & Chem 7: 11/05/22 06:41 11/07/22 09:07 Labs: Abnormal Lab Results - Last 24 Hours (Table) 11/07/22 Range/Units 09:07 Potassium 3.3 L (3.5-5.1) mmol/L BUN 28 H (7-17) mg/dL Assessment and Plan (1) COVID-19 Status: Acute Code(s): U07.1 - COVID-19 SNOMED Code(s): 428275568 Plan: 1patient was in the hospital with increasing shortness of breath and cough in this patient with positive COVID test that has been going on for about a week evidence of hypoxemia and interstitial pneumonia on the chest x-ray secondary to COVID-19 infection clinically doubt secondary bacterial infection 2-patient did have mildly elevated pro calcitonin clinically doubt secondary bacterial pneumonia and we will hold on any systemic antibiotic therapy at this point 3-patient has shown clinical improvement and the patient will continue short course of dexamethasone , along with zinc and ascorbic acid,, patient has received a 5 day course of Remdisivir Time with Patient: Less than 30
== END 2022-11-07 13:21 | disposition home or self-care (01) | DRG 177 ==
LOC: EC 19:56 → 6NMEDSUR 21:48 → OBSVTOIN 11-03 10:50 → 6NMEDSUR 11-07 04:34
PROVIDERS: ADMIT Hospitalist; ATTEND Hospitalist
PROC: XW033E5 Introduction of Remdesivir Anti-infective into Peripheral Vein, Percutaneous Approach, New Technology Group 5 (ICD-10-PCS; principal; 2022-11-03)
PROC: 8E0ZXY6 Isolation (ICD-10-PCS; principal; 2022-11-03)
PROC: 05HY33Z Insertion of Infusion Device into Upper Vein, Percutaneous Approach (ICD-10-PCS; 2022-11-05 12:02)
DX: U07.1 COVID-19 (principal); J12.82 Pneumonia due to coronavirus disease 2019; J96.01 Acute respiratory failure with hypoxia; I48.91 Unspecified atrial fibrillation; E78.5 Hyperlipidemia, unspecified; I10 Essential (primary) hypertension; J98.01 Acute bronchospasm; M19.90 Unspecified osteoarthritis, unspecified site; M25.562 Pain in left knee; M25.561 Pain in right knee; E87.6 Hypokalemia; D70.9 Neutropenia, unspecified; F41.9 Anxiety disorder, unspecified; Z79.01 Long term (current) use of anticoagulants; Z98.84 Bariatric surgery status; Z79.899 Other long term (current) drug therapy
CPT/HCPCS: 36410; 36415; 71045; 71046; 76937; 80048; 80053; 83605; 83735; 83880; 84145; 84484; 85025; 85379; 85610; 85730; 87636; 93005; 94640; 94760; 96374; 96376; 99285

== ENCOUNTER → 2023-07-25 | Outpatient (CLI) | payer MEDICARE ==
--- NOTE | 2023-07-29 15:38 | MM ---
Reason for Exam: Screening (asymptomatic). Last mammogram was performed 1 year(s) and 1 month(s) ago. Patient History: Menarche at age 14. First Full-Term at age 41. Late child-bearing (after 30). Postmenopausal. 04/17/2004, Benign Stereotactic Core Biopsy on the right side. 01/03/2000, Benign Stereotactic Core Biopsy on the right side. Maternal aunt had breast cancer, age 65. Risk Values: Deonna 5 year model risk: 3.6%. NCI Lifetime model risk: 10.2%. Prior Study Comparison: 02/10/2020 Bilateral Screening Mammogram, [facility]. 05/17/2021 Bilateral Screening Mammogram, [facility]. 06/04/2022 Bilateral MG 3D screening mammo w/cad, [facility]. Tissue Density: There are scattered fibroglandular densities. Findings: Analyzed By CAD. Chronic nodularity on the right. There is no suspicious group of microcalcifications or new suspicious mass in either breast. Overall Assessment: Benign, BI-RAD 2 Management: Screening Mammogram of both breasts in 1 year. See note below in regards to patient's increased 5 year Deonna score. Patient should continue monthly self-breast exams. A clinical breast exam by your physician is recommended on an annual basis. This exam should not preclude additional follow-up of suspicious palpable abnormalities. Note on Deonna scores and lifetime risk: 1. A Deonna score greater than 3% is considered moderate risk. If this is the case, consider specialist referral to assess eligibility for a risk reducing agent. 2. If overall lifetime risk for the development of breast cancer is 20% or higher, the patient may qualify for future screening with alternating mammogram and breast MRI. Electronically signed and approved by: Robert Silva M.D. Radiologist
== END | disposition home or self-care (01) ==
LOC: RADMAMWWP 13:04
PROVIDERS: ATTEND Family Medicine
DX: Z12.31 Encounter for screening mammogram for malignant neoplasm of breast (principal); Z78.0 Asymptomatic menopausal state; Z80.3 Family history of malignant neoplasm of breast
CPT/HCPCS: 77063; 77067

== ENCOUNTER → 2023-09-05 | Outpatient (CLI) | payer MEDICARE ==
[2023-09-05 16:21] LABS: African American GFR (CKD) 73 (>60 ml/min/1.73 sqM); Anion Gap 6 mmol/L; Blood Urea Nitrogen 25 mg/dL (7-17); Calcium 9.5 mg/dL (8.4-10.2); Carbon Dioxide 28 mmol/L (22-30); Chloride 106 mmol/L (98-107); Glucose 131 mg/dL (74-99); Non-African American GFR(CKD) 64 (>60 ml/min/1.73 sqM); Potassium 4.1 mmol/L (3.5-5.1); Sodium 140 mmol/L (137-145)
[2023-09-05 16:27] LABS: NT-Pro-B-Type Natriuretic Pept 1520 pg/mL
== END | disposition home or self-care (01) ==
LOC: LABWHC1 13:42
PROVIDERS: ATTEND Nurse Practitioner Adult Health
DX: I42.8 Other cardiomyopathies (principal); R60.0 Localized edema
CPT/HCPCS: 36415; 80048; 83880

== ENCOUNTER → 2024-11-26 | Outpatient (CLI) | payer MEDICARE ==
--- NOTE | 2024-11-26 14:15 | MM ---
Reason for Exam: Screening (asymptomatic). Last mammogram was performed 1 year(s) and 5 month(s) ago. Patient History: Menarche at age 14. First Full-Term at age 41. Late child-bearing (after 30). Postmenopausal. 04/17/2004, Benign Stereotactic Core Biopsy on the right side. 01/03/2000, Benign Stereotactic Core Biopsy on the right side. Maternal aunt had breast cancer, age 65. Risk Values: Deonna 5 year model risk: 3.6%. NCI Lifetime model risk: 9.3%. Prior Study Comparison: 05/17/2021 Bilateral Screening Mammogram, [facility]. 06/04/2022 Bilateral MG 3D screening mammo w/cad, [facility]. 07/25/2023 Bilateral MG 3D screening mammo w/cad, [facility]. Tissue Density: There are scattered areas of fibroglandular density. Findings: Analyzed By CAD. A few biopsy clips in the right breast are redemonstrated. There is no suspicious group of microcalcifications or new suspicious mass in either breast. Overall Assessment: Benign, BI-RAD 2 Management: Screening Mammogram of both breasts in 1 year. . Patient should continue monthly self-breast exams. A clinical breast exam by your physician is recommended on an annual basis. This exam should not preclude additional follow-up of suspicious palpable abnormalities. Note on Deonna scores and lifetime risk: 1. A Deonna score greater than 3% is considered moderate risk. If this is the case, consider specialist referral to assess eligibility for a risk reducing agent. 2. If overall lifetime risk for the development of breast cancer is 20% or higher, the patient may qualify for future screening with alternating mammogram and breast MRI. [facility], , 11/26/2024 2:12 PM. Electronically signed and approved by: Gregory Galvan M.D.
== END | disposition home or self-care (01) ==
LOC: RADMAMWWP 13:39
PROVIDERS: ATTEND Family Medicine
DX: Z12.31 Encounter for screening mammogram for malignant neoplasm of breast (principal); R92.323 Mammographic fibroglandular density, bilateral breasts; Z78.0 Asymptomatic menopausal state; Z80.3 Family history of malignant neoplasm of breast
CPT/HCPCS: 77063; 77067

== ENCOUNTER 2025-02-07 23:58 | Emergency (ER) | payer MEDICARE ==
--- NOTE | 2025-02-08 | ED ---
Fall HPI - General Stated Complaint: fall Time Seen by Provider: 02/08/25 00:00 Source: patient, RN notes reviewed, old records reviewed Mode of arrival: EMS Limitations: no limitations - History of Present Illness Initial Comments: This is a 74-year-old female after fall. Fall blood thinners. Positive hitting head no loss of consciousness. Severe headache. Patient is on Xarelto for A- fib, significant pain above left eye. Minimal bleeding from forehead. Patient is brought in by EMS with a c-collar on. Patient states he tripped over a dog. MD Complaint: fall -: hour(s) Fall From: standing When Fall Occurred: 1 hour [employer] DEFENSE [employer] Fall Witnessed: yes, by family Place Fall Occurred: home Loss of Consciousness: none Prolonged Down Time?: no Symptoms Prior to Fall: none Location: head, face Severity: severe Context: tripped/slipped Associated Symptoms: denies - Related Data Home Medications Medication Instructions Recorded Confirmed Atorvastatin [Lipitor] 10 mg PO HS 10/13/14 11/02/22 Rivaroxaban [Xarelto] 20 mg PO HS 10/13/14 11/02/22 Sertraline [Zoloft] 150 mg PO HS 10/13/14 11/02/22 Furosemide [Lasix] 20 mg PO DAILY PRN 11/02/22 11/02/22 Metoprolol Tartrate [Lopressor] 100 mg PO BID 11/02/22 11/02/22 Nitrofurantoin Macrocrystal 50 mg PO HS 11/02/22 11/02/22 [Macrodantin] Potassium Chloride ER [K-Dur 10] 10 meq PO DAILY PRN 11/02/22 11/02/22 lisinopriL [Zestril] 5 mg PO BID 11/02/22 11/02/22 Previous Rx's Medication Instructions Recorded Acetaminophen Tab [Tylenol] 650 mg PO Q6HR PRN tab 11/07/22 Ascorbic Acid [Vitamin C] 500 mg PO DAILY 30 Days #30 tab 11/07/22 Cholecalciferol [Vitamin D3 (25 25 mcg PO DAILY #30 tab 11/07/22 Mcg = 1000 Iu)] Zinc Sulfate [Orazinc] 220 mg PO DAILY 14 Days #14 cap 11/07/22 dexAMETHasone [Decadron] 6 mg PO DAILY 5 Days #5 tablet 04/12/23 Allergies Allergy/AdvReac Type Severity Reaction Status Date / Time No Known Allergies Allergy Verified 11/02/22 22:06 Review of Systems ROS Statement: Those systems with pertinent positive or pertinent negative responses have been documented in the HPI. ROS Other: All systems not noted in ROS Statement are negative. Past Medical History Past Medical History: Atrial Fibrillation, Hyperlipidemia, Hypertension, Os teoarthritis (OA) Additional Past Medical History / Comment(s): LILIANA KNEES VERY PAINFUL. MILD EDEMA LEGS History of Any Multi-Drug Resistant Organisms: None Reported Past Surgical History: Bariatric Surgery, Breast Surgery, Section, Heart Catheterization Additional Past Surgical History / Comment(s): 2 BREAST BX; D&C'S; LAP BAND 2005. Past Anesthesia/Blood Transfusion Reactions: No Reported Reaction Past Psychological History: Anxiety Smoking Status: Never smoker Past Alcohol Use History: Occasional Additional Past Alcohol Use History / Comment(s): 2 GLASSES WINE 2-3X PER WK Past Drug Use History: None Reported - Past Family History Mother Family Medical History: Deep Vein Thrombosis (DVT) Father Family Medical History: CVA/TIA General Exam General appearance: alert, in no apparent distress Head exam: Present: atraumatic, normocephalic, normal inspection Eye exam: Present: normal appearance, PERRL, EOMI. Absent: scleral icterus, conjunctival injection, periorbital swelling ENT exam: Present: normal exam, mucous membranes moist Neck exam: Present: normal inspection. Absent: tenderness, meningismus, lymphadenopathy Respiratory exam: Present: normal lung sounds bilaterally. Absent: respiratory distress, wheezes, rales, rhonchi, stridor Cardiovascular Exam: Present: regular rate, normal rhythm, normal heart sounds. Absent: systolic murmur, diastolic murmur, rubs, gallop, clicks GI/Abdominal exam: Present: soft, normal bowel sounds. Absent: distended, tenderness, guarding, rebound, rigid Extremities exam: Present: normal inspection, full ROM, normal capillary refill. Absent: tenderness, pedal edema, joint swelling, calf tenderness Back exam: Present: normal inspection Neurological exam: Present: alert, oriented X3, CN II-XII intact Psychiatric exam: Present: normal affect, normal mood Skin exam: Present: warm, dry, intact, normal color. Absent: rash Course Vital Signs 02/08/25 02/08/25 00:01 00:43 Temperature 98.6 F Pulse Rate 104 H 105 H Respiratory 18 14 Rate Blood Pressure 138/87 135/89 O2 Sat by Pulse 97 92 L Oximetry - Reevaluation(s) Reevaluation #1: 02/08/25 00:24 Medical records reviewed Reevaluation #2: 02/08/25 00:49 Patient pain is improved Reevaluation #3: 02/08/25 00:49 Patient informed of results questions answered Reevaluation #4: Was pt. sent in by a medical professional or institution (MARCELLO Turner, GIS ANALYST, urgent care, hospital, or senior living...) When possible be specific @ -no Did you speak to anyone other than the patient for history (EMS, parent, family, police, friend...)? What history was obtained from this source @ -no Did you review nursing and triage notes (agree or disagree)? Why? @ -agree Are old charts reviewed (outside hosp., previous admission, EMS record, old EKG, old radiological studies, urgent care reports/EKG's, senior living records)? Report findings @ -yes Differential Diagnosis (chest pain, altered mental status, abdominal pain women, abdominal pain men, vaginal bleeding, weakness, fever, dyspnea, syncope, headache, dizziness, GI bleed, back pain, seizure, CVA, palpatations, mental health, musculoskeletal)? @ -prior EKG interpreted by me (3pts min.). @ -yes X-rays interpreted by me (1pt min.). @ -yes negative for acute disease CT interpreted by me (1pt min.). @ -no U/S interpreted by me (1pt. min.). @ -no What testing was considered but not performed or refused? (CT, X-rays, U/S, labs)? Why? @ -none What meds were considered but not given or refused? Why? @ -none Did you discuss the management of the patient with other professionals (professionals i.e. MARCELLO Turner, GIS ANALYST, lab, RT, psych nurse, long term care social worker, shark biologist, teacher, operations officer, case manager specialist)? Give summary @ -no Was smoking cessation discussed for >3mins.? @ -no Was critical care preformed (if so, how long)? @ -no Were there social determinants of health that impacted care today? How? (Homelessness, low income, unemployed, alcoholism, drug addiction, transportation, low edu. Level, literacy, decrease access to med. care, usp, rehab)? @ -none Was there de-escalation of care discussed even if they declined (Discuss DNR or withdrawal of care, Hospice)? DNR status @ -no What co-morbidities impacted this encounter? (DM, HTN, Smoking, COPD, CAD, Cancer, CVA, ARF, Chemo, Hep., AIDS, mental health diagnosis, sleep apnea, morbid obesity)? @ -none Was patient admitted / discharged? Hospital course, mention meds given and route, prescriptions, significant lab abnormalities, going to OR and other pertinent info. @ - Undiagnosed new problem with uncertain prognosis? @ -no Drug Therapy requiring intensive monitoring for toxicity (Heparin, Nitro, Insulin, Cardizem)? @ -no Were any procedures done? @ -no Diagnosis/symptom? @ - Acute, or Chronic, or Acute on Chronic? @ -Acute Uncomplicated (without systemic symptoms) or Complicated (systemic symptoms)? @ -Complicated Side effects of treatment? @ -no Exacerbation, Progression, or Severe Exacerbation? @ -exacerbation Poses a threat to life or bodily function? How? (Chest pain, USA, NE, pneumonia, PE, COPD, DKA, ARF, appy, cholecystitis, CVA, Diverticulitis, Homicidal, Suicid al, threat to staff... and all critical care pts) @ -yes Reevaluation #5: Differential Headache: Migraine, tension, cluster, carbon monoxide, central venous thrombosis, pension karma temporal arteritis, acute closure glaucoma, intercranial hemorrhage, mastoiditis, sinusitis, head injury, this is not meant to be an all-inclusive list. Procedures - Laceration Laceration #1 Consent Obtained: verbal consent Indication: laceration Site: face Size (cm): 2 Description: linear Size of Sutures: other (dermabond) Complications: pain Patient Tolerated Procedure: well Medical Decision Making - Medical Decision Making 74 female in the ER for evaluation status post fall fall with head injury left eyebrow laceration repaired here in the ER, patient can be discharged home - EKG Data -: EKG Interpreted by Me (EKG is A-fib with RVR 110 QRS 93 QTc 422) - Radiology Data Radiology results: report reviewed (CT brain C-spine negative for acute disease), image reviewed Disposition Clinical Impression: Fall, Head injury, Forehead laceration Disposition: HOME SELF-CARE Condition: Fair Instructions (If sedation given, give patient instructions): Laceration (ED), Fall Prevention for Older Adults (ED) Is patient prescribed a controlled substance at d/c from ED?: No Referrals: Gaurav Hutchinson MD [Primary Care Provider] - 1-2 days Time of Disposition: 00:50
[2025-02-08 00:04] VITALS: TEMP 98.6
--- NOTE | 2025-02-08 00:25 | CT ---
EXAM: CT Head Without Intravenous Contrast CLINICAL HISTORY: ITS.REASON CT Reason: pain TECHNIQUE: Axial computed tomography images of the head/brain without intravenous contrast. CTDI is 45.3 mGy and DLP is 1090 mGy-cm. This CT exam was performed using one or more of the following dose reduction techniques: automated exposure control, adjustment of the mA and/or kV according to patient size, and/or use of iterative reconstruction technique. COMPARISON: No relevant prior studies available. FINDINGS: Brain: The territorial lott-white matter differentiation is maintained throughout. Age-related cerebral volume loss. Periventricular and subcortical white matter hypoattenuation, consistent with chronic microangiopathy. No acute intracranial hemorrhage. No midline shift or mass effect. Ventricles: Unremarkable. No ventriculomegaly. Bones/joints: Unremarkable. No acute fracture. Soft tissues: Unremarkable. Sinuses: Unremarkable as visualized. No acute sinusitis. Mastoid air cells: Unremarkable as visualized. No mastoid effusion. Orbits: Large left periorbital hematoma. IMPRESSION: 1. Large left periorbital hematoma. 2. No acute intracranial hemorrhage. No midline shift or mass effect. EXAM: CT Cervical Spine Without Intravenous Contrast CLINICAL HISTORY: ITS.REASON CT Reason: pain TECHNIQUE: Axial computed tomography images of the cervical spine without intravenous contrast. CTDI is 20.6 mGy and DLP is 511 mGy-cm. This CT exam was performed using one or more of the following dose reduction techniques: automated exposure control, adjustment of the mA and/or kV according to patient size, and/or use of iterative reconstruction technique. COMPARISON: No relevant prior studies available. FINDINGS: The vertebral body heights are maintained. The craniocervical junction is intact. The atlanto-dens interval is maintained. The dens is intact. There is no spondylolisthesis. Multilevel cervical spondylosis and degenerative disc disease. Straightening of the cervical lordosis. IMPRESSION: No acute fracture or subluxation of the cervical spine.
[2025-02-08] MEDS: ONDANSETRON 4 MG/2 ML VIAL IVP STA (00:34)
[2025-02-08] MEDS: TOPICAL SKIN ADHESIVE 1 EACH AMP TOPICAL ONE (00:35)
[2025-02-08] MEDS: HYDROmorphone 1 MG/ML 1 ML SYRINGE IVP STA (00:36)
[2025-02-08 00:43] VITALS: PULSE 105
[2025-02-08 01:26] VITALS: BP 129/85; RESP 16
== END 2025-02-08 01:26 | disposition home or self-care (01) ==
LOC: EC 23:58
DX: S01.81XA Laceration without foreign body of other part of head, initial encounter (principal); W01.0XXA Fall on same level from slipping, tripping and stumbling without subsequent striking against object, initial encounter; Y92.019 Unspecified place in single-family (private) house as the place of occurrence of the external cause
CPT/HCPCS: 72125; 70450; 99284; 12011; 96374; 96375; J2405; J1171

== ENCOUNTER 2025-02-10 11:49 | Emergency (ER) | payer MEDICARE ==
[2025-02-10 11:53] VITALS: TEMP 97.9
--- NOTE | 2025-02-10 13:05 | CT ---
EXAMINATION TYPE: CT brain wo con DATE OF EXAM: 02/10/2025 1:00 PM COMPARISON: 02/08/2025 CLINICAL INDICATION: Female, 74 years old with history of recent fall, pain TECHNIQUE: Examination was done in axial plane without intravenous contrast. Coronal and sagittal r econstructions performed. CT DLP: 1289.4 mGycm, Automated exposure control for dose reduction was used. FINDINGS: There is no evidence of acute intracranial hemorrhage, acute ischemic changes, mass, mass-effect, or extra-axial fluid collection. There is no effacement of cerebral sulci or basal subarachnoid cister ns. There is no hydrocephalus. There is no midline shift. Goodman-white matter distinction is preserv ed. Large left periorbital and anterior left frontal scalp hematomas. Some associated air suggests concur rent laceration. No underlying calvarial fracture. Anatomic variation with hyperostosis frontalis interna. Partially e mpty sella. Paranasal sinuses and mastoid air cells well pneumatized. Orbits and globes appear intact. IMPRESSION: Large left periorbital and anterior left frontal soft tissue hematomas redemonstrated. No acute intra cranial abnormality seen. [facility], , 02/10/2025 1:02 PM
--- NOTE | 2025-02-10 13:23 | CT ---
EXAMINATION TYPE: CT facial bones wo con DATE OF EXAM: 02/10/2025 COMPARISON: None CLINICAL INDICATION: Female, 74 years old with history of recent fall, pain; PHH, Recent fall. pain TECHNIQUE: CT scan of the sinuses is performed without contrast, axial images are obtained, coronal reformatted images are also reviewed. CT DLP: 1289.[address] CTDI: mGy Automated exposure control for dose reduction was used. FINDINGS: The facial bones are intact and there is no fracture. There is marked preseptal swelling over the left globe and orbit. There is mild preseptal swelling ov er the right lobe and orbit. There are no intra or extraconal masses or hemorrhages. The paranasal sinuses are well aerated. IMPRESSION: 1. No nasal bone fractures. 2. Preseptal swelling over both orbits, left much greater than right. [facility], , 02/10/2025 1:21 PM
--- NOTE | 2025-02-10 13:23 | ED ---
General Adult HPI - General Chief complaint: Recheck/Abnormal Lab/Rx Stated complaint: Recheck-Fall on thinner/facial swelling Time Seen by Provider: 02/10/25 12:04 Source: patient, RN notes reviewed Mode of arrival: wheelchair Limitations: no limitations - History of Present Illness Initial comments: 74-year-old female presents emergency department with chief complaint of worsening facial pain, swelling. Patient was seen here after a fall. Patient states she had a CT of her brain which was negative. Patient states that now she has worsening facial swelling especially on the right. Patient is any patient denies any neck pain no extremity no no focal weakness - Related Data Home Medications Medication Instructions Recorded Confirmed Atorvastatin [Lipitor] 10 mg PO HS 10/13/14 11/02/22 Rivaroxaban [Xarelto] 20 mg PO HS 10/13/14 11/02/22 Sertraline [Zoloft] 150 mg PO HS 10/13/14 11/02/22 Furosemide [Lasix] 20 mg PO DAILY PRN 11/02/22 11/02/22 Metoprolol Tartrate [Lopressor] 100 mg PO BID 11/02/22 11/02/22 Nitrofurantoin Macrocrystal 50 mg PO HS 11/02/22 11/02/22 [Macrodantin] Potassium Chloride ER [K-Dur 10] 10 meq PO DAILY PRN 11/02/22 11/02/22 lisinopriL [Zestril] 5 mg PO BID 11/02/22 11/02/22 Previous Rx's Medication Instructions Recorded Acetaminophen Tab [Tylenol] 650 mg PO Q6HR PRN tab 11/07/22 Ascorbic Acid [Vitamin C] 500 mg PO DAILY 30 Days #30 tab 11/07/22 Cholecalciferol [Vitamin D3 (25 25 mcg PO DAILY #30 tab 11/07/22 Mcg = 1000 Iu)] Zinc Sulfate [Orazinc] 220 mg PO DAILY 14 Days #14 cap 11/07/22 dexAMETHasone [Decadron] 6 mg PO DAILY 5 Days #5 tablet 11/07/22 Allergies Allergy/AdvReac Type Severity Reaction Status Date / Time No Known Allergies Allergy Verified 02/10/25 11:53 Review of Systems ROS Statement: Those systems with pertinent positive or pertinent negative responses have been documented in the HPI. ROS Other: All systems not noted in ROS Statement are negative. Past Medical History Past Medical History: Atrial Fibrillation, Hyperlipidemia, Hypertension, Osteoarthritis (OA) Additional Past Medical History / Comment(s): LILIANA KNEES VERY PAINFUL. MILD EDEMA LEGS History of Any Multi-Drug Resistant Organisms: None Reported Past Surgical History: Bariatric Surgery, Breast Surgery, Section, Heart Catheterization Additional Past Surgical History / Comment(s): 2 BREAST BX; D&C'S; LAP BAND 2005. Past Anesthesia/Blood Transfusion Reactions: No Reported Reaction Past Psychological History: Anxiety Smoking Status: Never smoker Past Alcohol Use History: Occasional Past Drug Use History: None Reported - Past Family History Mother Family Medical History: Deep Vein Thrombosis (DVT) Father Family Medical History: CVA/TIA General Exam Limitations: no limitations General appearance: alert, in no apparent distress Head exam: Present: atraumatic, normocephalic, normal inspection Eye exam: Present: normal appearance, PERRL, EOMI, periorbital swelling (Diffuse ecchymosis), periorbital tenderness. Absent: scleral icterus, conjunctival injection ENT exam: Present: normal exam, normal oropharynx, mucous membranes moist, TM's normal bilaterally, normal external ear exam Neck exam: Present: normal inspection, full ROM. Absent: tenderness, meningismus, lymphadenopathy Respiratory exam: Present: normal lung sounds bilaterally. Absent: respiratory distress, wheezes, rales, rhonchi, stridor Cardiovascular Exam: Present: regular rate, normal rhythm, normal heart sounds. Absent: systolic murmur, diastolic murmur, rubs, gallop, clicks Neurological exam: Present: alert, oriented X3, CN II-XII intact, reflexes normal. Absent: motor sensory deficit Course Vital Signs 02/10/25 11:50 Temperature 97.9 F Pulse Rate 79 Respiratory 20 Rate Blood Pressure 156/85 O2 Sat by Pulse 99 Oximetry Medical Decision Making - Medical Decision Making Was pt. sent in by a medical professional or institution (, PA, BASE FILLER, urgent care, hospital, or snf...) When possible be specific @ -No Did you speak to anyone other than the patient for history (EMS, parent, family, police, friend...)? What history was obtained from this source @ -No Did you review nursing and triage notes (agree or disagree)? Why? @ -I reviewed and agree with nursing and triage notes Were old charts reviewed (outside hosp., previous admission, EMS record, old EKG, old radiological studies, urgent care reports/EKG's, snf records)? Report findings @ -No old charts were reviewed Differential Diagnosis (chest pain, altered mental status, abdominal pain women, abdominal pain men, vaginal bleeding, weakness, fever, dyspnea, syncope, headache, dizziness, GI bleed, back pain, seizure, CVA, palpatations, mental health, musculoskeletal)? @ -Fall, intracranial hemorrhage, facial fracture, facial hematoma EKG interpreted by me (3pts min.). @ -None X-rays interpreted by me (1pt min.). @ -None done CT interpreted by me (1pt min.). @ -CT brain, facial bones no acute fracture or large facial hematomas noted U/S interpreted by me (1pt. min.). @ -None done What testing was considered but not performed or refused? (CT, X-rays, U/S, labs)? Why? @ -None What meds were considered but not given or refused? Why? @ -None Did you discuss the management of the patient with other professionals ( professionals i.e. , PA, BASE FILLER, lab, RT, psych nurse, public health social worker, engineering teacher, teacher, credit risk officer, rn case mgr)? Give summary @ -No Was smoking cessation discussed for >3mins.? @ -No Was critical care preformed (if so, how long)? @ -No Were there social determinants of health that impacted care today? How? (Homelessness, low income, unemployed, alcoholism, drug addiction, transportation, low edu. Level, literacy, decrease access to med. care, [place] [facility], rehab)? @ -No Was there de-escalation of care discussed even if they declined (Discuss DNR or withdrawal of care, Hospice)? DNR status @ -No What co-morbidities impacted this encounter? (DM, HTN, Smoking, COPD, CAD, Cancer, CVA, ARF, Chemo, Hep., AIDS, mental health diagnosis, sleep apnea, morbid obesity)? @ -None Was patient admitted / discharged? Hospital course, mention meds given and route, prescriptions, significant lab abnormalities, going to OR and other pertinent info. @ -Discharge patient presented for recheck of recent fall, increasing facial pain and swelling negative CT patient does have large facial hematomas. Undiagnosed new problem with uncertain prognosis? @ -No Drug Therapy requiring intensive monitoring for toxicity (Heparin, Nitro, Insulin, Cardizem)? @ -No Were any procedures done? @ -No Diagnosis/symptom? @Facial hematomas, fall Acute, or Chronic, or Acute on Chronic? @ -Acute Uncomplicated (without systemic symptoms) or Complicated (systemic symptoms)? @ -Uncomplicated Side effects of treatment? @ -No Exacerbation, Progression, or Severe Exacerbation? @ -No Poses a threat to life or bodily function? How? (Chest pain, [place], [place], pneumonia, PE, COPD, DKA, ARF, appy, cholecystitis, CVA, Diverticulitis, Homicidal, Suicidal, threat to staff... and all critical care pts) @ -No Disposition Clinical Impression: Fall, Traumatic hematoma of face Disposition: HOME SELF-CARE Condition: Stable Instructions (If sedation given, give patient instructions): Hematoma (ED) Additional Instructions: Please return to the Emergency Department if symptoms worsen or any other concerns. Is patient prescribed a controlled substance at d/c from ED?: No Referrals: Gaurav Hutchinson MD [Primary Care Provider] - 1-2 days Time of Disposition: 13:29
[2025-02-10 13:53] VITALS: BP 144/105; PULSE 85; RESP 19
== END 2025-02-10 13:53 | disposition home or self-care (01) ==
LOC: EC 11:49
DX: S00.83XA Contusion of other part of head, initial encounter (principal); W18.30XA Fall on same level, unspecified, initial encounter
CPT/HCPCS: 70450; 70486; 99283